=== PATIENT | male | born 1955 | race Caucasian/White ===

== ENCOUNTER → 2018-12-27 | Outpatient (CLI) | payer BC ==
--- NOTE | 2018-12-27 15:20 | XR ---
EXAMINATION TYPE: XR bone survey complete DATE OF EXAM: 12/27/2018 COMPARISON: Chest x-ray dated 04/07/2016, cervical spine x-ray dated 01/31/2016, left rib x-rays dated 01/31/2016 and nuclear medicine bone scan dated 01/25/2016 HISTORY: Monoclonal gammopathy Bony calvarium : 2 views of the bony calvarium demonstrate. Solitary lytic lesion is seen within the left frontal bone just anterior to the coronal suture. This measures 5 mm. Spine: Two views of the cervical, thoracic and lumbar spines are submitted. Moderate degenerative ch anges of the cervical spine with grade 1 anterolisthesis of C2 on C3. No suspicious lytic lesion is s een. Mild to moderate degenerative changes of the thoracic spine. No suspicious osseous lesion. The l umbar spine demonstrates grade 1 anterolisthesis of L4 on L5 and mild retrolisthesis of L3 on L2 and overall moderate degenerative change. No vertebral body height loss. No suspicious lesion. Moderate a therosclerosis of the abdominal aorta noted. PELVIS: Single view of the pelvis demonstrates moderate degenerative changes of the femoral acetabula r joints. Subtle lucencies over the sacrum appear to represent bowel gas as the periphery extends bey ond the sacroiliac joint bilaterally at the level of S3. Bowel gas overlies the left iliac bone. No s uspicious lytic lesion is seen. UPPER EXTREMITIES: Two views of the upper extremities. Advanced arthropathy of the left glenohumeral joint and mild acromioclavicular arthropathy. Moderate degenerative change of the right shoulder. LOWER EXTREMITIES: 2 views of the lower extremities. There is a small geode of the lateral femoral h ead neck junction on the right and small cam deformity. No suspicious osseous lesion. On the left the re is also a cam deformity without suspicious osseous lesion. CHEST: Biapical lucency represents underlying COPD. Linear bibasilar relate to subsegmental atelectas is. Cardiomediastinal silhouette is within normal limits. No focal consolidation, pleural effusion or pneumothorax. The previously seen cortical irregularity of the eighth left rib on the prior of 2015 is no longer visualized and could have a nondisplaced fracture that has healed well. IMPRESSION: Solitary left frontal calvarial lytic lesion. Other incidental findings as detailed above .
== END | disposition home or self-care (01) ==
LOC: RADXRMAIN 14:25
PROVIDERS: ATTEND Internal Medicine Hematology & Oncology
DX: M89.8X8 Other specified disorders of bone, other site (principal); D47.2 Monoclonal gammopathy
CPT/HCPCS: 77075

== ENCOUNTER 2019-04-17 13:20 | Inpatient (IN) | payer BC ==
--- NOTE | 2019-04-17 14:28 | ED ---
Dizziness HPI - General Chief Complaint: Dizziness Stated Complaint: SYNCOPAL EPISODE Time Seen by Provider: 04/17/19 14:09 Source: EMS Mode of arrival: EMS Limitations: no limitations - History of Present Illness Initial Comments: Patient is a 63-year-old male with history of prostate cancer myelomatous presenting to emergency Department with a chief complaint of a near syncopal episode. Patient reports about 3 hours ago he felt sudden onset of ligh theadedness and is unable to remember anything after that. The incident was witnessed by family member who states the patient was standing when he felt dizzy but did not completely pass out. The phone number reports the patient had difficulty breathing for about 30 seconds with no signs of postictal episode. Patient states he is currently undergoing chemotherapy and his most recent chemo was 1 week ago followed by several days of severe diarrhea. Patient states over the last 2 days he developed episodes of dizziness after he goes from a laying to standing position particular in the morning. Patient reports he is also developed dyspnea on exertion. 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 Patient denies shortness of breath, nausea, vomiting, blurry vision, one-sided weakness or paresthesias, gait instability or chest pain - Related Data Home Medications Medication Instructions Recorded Confirmed Acetaminophen [Tylenol] 650 mg PO Q6H PRN 04/17/19 04/17/19 Acyclovir [Zovirax] 400 mg PO BID 04/17/19 04/17/19 Aspirin 81 mg PO DAILY 04/17/19 04/17/19 Dexamethasone 20 mg PO MO 04/17/19 04/17/19 Ibuprofen [Motrin] 600 mg PO Q8H PRN 04/17/19 04/17/19 Lenalidomide [Revlimid] 25 mg PO DIRECTED 04/17/19 04/17/19 Lisinopril [Zestril] 20 mg PO DAILY 04/17/19 04/17/19 Metoprolol Tartrate [Lopressor] 50 mg PO BID 04/17/19 04/17/19 Prochlorperazine [Compazine] 10 mg PO Q6H PRN 04/17/19 04/17/19 Simvastatin [Zocor] 40 mg PO HS 04/17/19 04/17/19 Sulfamethox-Tmp 800-160Mg [Bactrim 1 tab PO MOWEFR 04/17/19 04/17/19 DS 800-160 mg] Allergies Allergy/AdvReac Type Severity Reaction Status Date / Time amoxicillin [From Amoxil] Allergy Rash/Hives Verified 04/17/19 16:08 codeine Allergy Unknown Verified 04/17/19 16:14 kacey Allergy Swelling Verified 04/17/19 16:08 monosodium glutamate [MSG] Allergy Swelling Verified 04/17/19 16:08 Review of Systems ROS Statement: Those systems with pertinent positive or pertinent negative responses have been documented in the HPI. ROS Other: All systems not noted in ROS Statement are negative. Past Medical History Past Medical History: Cancer, Hypertension Additional Past Medical History / Comment(s): Prostate cancer History of Any Multi-Drug Resistant Organisms: None Reported Past Surgical History: Hernia Repair Additional Past Surgical History / Comment(s): Lung biopsy/removal (bilateral) Past Psychological History: No Psychological Hx Reported Smoking Status: Never smoker Past Alcohol Use History: None Reported Past Drug Use History: None Reported General Exam Limitations: no limitations General appearance: alert, in no apparent distress, obese Head exam: Present: atraumatic, normocephalic, normal inspection Eye exam: Present: normal appearance, PERRL, EOMI Pupils: Present: normal accommodation ENT exam: Present: normal exam, normal oropharynx, mucous membranes moist, TM's normal bilaterally, normal external ear exam Neck exam: Present: normal inspection, full ROM Respiratory exam: Present: normal lung sounds bilaterally Cardiovascular Exam: Present: regular rate, normal rhythm, normal heart sounds GI/Abdominal exam: Present: soft. Absent: distended, tenderness, guarding, rebound Extremities exam: Present: normal inspection, full ROM Back exam: Present: normal inspection, full ROM Neurological exam: Present: alert, oriented X3 Psychiatric exam: Present: normal affect, normal mood Skin exam: Present: warm, dry, intact, normal color, rash (Macular rash on right upper and lower extremities) Course Vital Signs 04/17/19 13:22 Temperature 97.6 F Pulse Rate 60 Respiratory 18 Rate Blood Pressure 118/52 O2 Sat by Pulse 98 Oximetry EKG Findings - EKG Comments: EKG Findings:: Sided bradycardia, no ST changes. Ventricular rate 51, OH interval 164, QRS duration 80, QT/QTc 474/436 Medical Decision Making - Medical Decision Making Patient is 63-year-old male with history of prostate cancer and currently undergoing chemotherapy is presenting to emergency Department with a chief complaint of near syncopal episode. On initial evaluation patient is complaining symptomatically. EKG shows sinus bradycardia. Vital stable. Initial troponin negative. Troponin negative. Patient has no shortness of breath. Patient was going to be discharged however he states that he developed sudden onset of dizziness and was unable to completely well. Patient was also complaining of some gait instability but denies any one-sided paresthesias or weakness. Patient does report generalized weakness. Patient given fluids. Orthostatics obtained laying blood pressure 126/60 with a heart rate of 60. Sa ting blood pressure 125/61 with heart rate of 54. Standing blood pressure 109/84 with heart rate of 58. Patient is now complaining that he is symptomatically but denies any chest pain or shortness of breath. Patient will be admitted for observation. Admitting physician is . Case discussed with physician. - Lab Data Result diagrams: 04/17/19 14:32 04/17/19 14:32 Lab Results 04/17/19 04/17/19 04/17/19 Range/Units 14:32 14:32 14:32 WBC 9.9 (3.8-10.6) k/uL RBC 4.55 (4.30-5.90) m/uL Hgb 12.6 L (13.0-17.5) gm/dL Hct 38.4 L (39.0-53.0) % MCV 84.6 (80.0-100.0) fL MCH 27.8 (25.0-35.0) pg MCHC 32.9 (31.0-37.0) g/dL RDW 16.1 H (11.5-15.5) % Plt Count 104 L (150-450) k/uL Neutrophils % 63 % Lymphocytes % 11 % Monocytes % 9 % Eosinophils % 14 % Basophils % 0 % Neutrophils # 6.2 (1.3-7.7) k/uL Lymphocytes # 1.1 (1.0-4.8) k/uL Monocytes # 0.9 (0-1.0) k/uL Eosinophils # 1.4 H (0-0.7) k/uL Basophils # 0.0 (0-0.2) k/uL Anisocytosis Slight PT 10.4 (9.0-12.0) sec INR 1.0 (<1.2) APTT 21.0 L (22.0-30.0) sec Sodium 137 (137-145) mmol/L Potassium 4.3 (3.5-5.1) mmol/L Chloride 106 (98-107) mmol/L Carbon Dioxide 24 (22-30) mmol/L Anion Gap 7 mmol/L BUN 32 H (9-20) mg/dL Creatinine 1.07 (0.66-1.25) mg/dL Est GFR (CKD-EPI)AfAm 85 (>60 ml/min/1.73 sqM) Est GFR (CKD-EPI)NonAf 74 (>60 ml/min/1.73 sqM) Glucose 93 (74-99) mg/dL Calcium 7.6 L (8.4-10.2) mg/dL Total Bilirubin 0.3 (0.2-1.3) mg/dL AST 30 (17-59) U/L ALT 62 (21-72) U/L Alkaline Phosphatase 261 H (38-126) U/L Troponin I (0.000-0.034) ng/mL Total Protein 6.0 L (6.3-8.2) g/dL Albumin 3.0 L (3.5-5.0) g/dL Urine Color Urine Appearance (Clear) Urine pH (5.0-8.0) Ur Specific [place] (1.001-1.035) Urine Protein (Negative) Urine Glucose (UA) (Negative) Urine Ketones (Negative) Urine Blood (Negative) Urine Nitrite (Negative) Urine Bilirubin (Negative) Urine Urobilinogen (<2.0) mg/dL Ur Leukocyte Esterase (Negative) 04/17/19 04/17/19 04/17/19 Range/Units 14:32 14:32 16:57 WBC (3.8-10.6) k/uL RBC (4.30-5.90) m/uL Hgb (13.0-17.5) gm/dL Hct (39.0-53.0) % MCV (80.0-100.0) fL MCH (25.0-35.0) pg MCHC (31.0-37.0) g/dL RDW (11.5-15.5) % Plt Count (150-450) k/uL Neutrophils % % Lymphocytes % % Monocytes % % Eosinophils % % Basophils % % Neutrophils # (1.3-7.7) k/uL Lymphocytes # (1.0-4.8) k/uL Monocytes # (0-1.0) k/uL Eosinophils # (0-0.7) k/uL Basophils # (0-0.2) k/uL Anisocytosis PT (9.0-12.0) sec INR (<1.2) APTT (22.0-30.0) sec Sodium (137-145) mmol/L Potassium (3.5-5.1) mmol/L Chloride (98-107) mmol/L Carbon Dioxide (22-30) mmol/L Anion Gap mmol/L BUN (9-20) mg/dL Creatinine (0.66-1.25) mg/dL Est GFR (CKD-EPI)AfAm (>60 ml/min/1.73 sqM) Est GFR (CKD-EPI)NonAf (>60 ml/min/1.73 sqM) Glucose (74-99) mg/dL Calcium (8.4-10.2) mg/dL Total Bilirubin (0.2-1.3) mg/dL AST (17-59) U/L ALT (21-72) U/L Alkaline Phosphatase (38-126) U/L Troponin I <0.012 <0.012 (0.000-0.034) ng/mL Total Protein (6.3-8.2) g/dL Albumin (3.5-5.0) g/dL Urine Color Yellow Urine Appearance Clear (Clear) Urine pH 5.0 (5.0-8.0) Ur Specific [place] 1.009 (1.001-1.035) Urine Protein Negative (Negative) Urine Glucose (UA) Negative (Negative) Urine Ketones Negative (Negative) Urine Blood Negative (Negative) Urine Nitrite Negative (Negative) Urine Bilirubin Negative (Negative) Urine Urobilinogen <2.0 (<2.0) mg/dL Ur Leukocyte Esterase Negative (Negative) Disposition Clinical Impression: Syncope, near, Generalized weakness, Dizziness Disposition: ADMITTED IP TO THIS [facility] Condition: Stable Instructions (If sedation given, give patient instructions): Dizziness (ED) Additional Instructions: Patient will be admitted Referrals: Tim Perez MD [Primary Care Provider] - 1-2 days Time of Disposition: 18:21
[2019-04-17 14:47] LABS: Anisocytosis Slight; Appearance,Urine Clear (Clear); Basophils % (A) 0 %; Bilirubin,Urine Negative (Negative); Blood,Urine Negative (Negative); Color,Urine Yellow; Eosinophils # (A) 1.4 k/uL (0-0.7); Eosinophils % (A) 14 %; Glucose,Urine (UA) Negative (Negative); HCT 38.4 % (39.0-53.0); HGB 12.6 gm/dL (13.0-17.5); Ketones,Urine Negative (Negative); Leukocyte Esterase,Urine Negative (Negative); Lymphocytes # (A) 1.1 k/uL (1.0-4.8); Lymphocytes % (A) 11 %; MCH 27.8 pg (25.0-35.0); MCHC 32.9 g/dL (31.0-37.0); MCV 84.6 fL (80.0-100.0); Mean Platelet Volume 8.3; Monocytes # (A) 0.9 k/uL (0-1.0); Monocytes % (A) 9 %; Neutrophils # (A) 6.2 k/uL (1.3-7.7); Neutrophils % (A) 63 %; Nitrite,Urine Negative (Negative); Platelet Count 104 k/uL (150-450); Protein,Urine Negative (Negative); RBC 4.55 m/uL (4.30-5.90); RDW 16.1 % (11.5-15.5); Specific Gravity,Urine 1.009 (1.001-1.035); Urobilinogen,Urine <2.0 mg/dL (<2.0); WBC 9.9 k/uL (3.8-10.6)
--- NOTE | 2019-04-17 14:48 | XR ---
EXAMINATION TYPE: XR chest 2V DATE OF EXAM: 04/17/2019 COMPARISON: Chest x-ray April 07, 2016. HISTORY: Syncope and weakness. TECHNIQUE: Frontal and lateral views of the chest are obtained. FINDINGS: There is background fairly advanced emphysematous change most prominent in upper lungs rede monstrated. There is no focal air space opacity, pleural effusion, or pneumothorax seen. The cardia c silhouette size is within normal limits. Multilevel spurring in the thoracic spine is seen.. IMPRESSION: Emphysematous change without new acute pulmonary process.
[2019-04-17 14:59] LABS: Calcium 7.6 mg/dL (8.4-10.2); Potassium 4.3 mmol/L (3.5-5.1); Total Bilirubin 0.3 mg/dL (0.2-1.3)
[2019-04-17 15:02] LABS: Prothrombin Time 10.4 sec (9.0-12.0)
[2019-04-17] MEDS ORDERED: SODIUM CHLORIDE 0.9% 1,000 ML IV STA (18:17)
[2019-04-17] MEDS ORDERED: NALOXONE 0.4 MG/ML 1 ML VIAL IV PRN (18:33)
[2019-04-17] MEDS ORDERED: ALPRAZolam 0.25 MG TAB PO PRN (18:33)
[2019-04-17] MEDS: SODIUM CHLORIDE 0.9% 1,000 ML IV SCH (19:10)
--- NOTE | 2019-04-17 22:13 | CT ---
EXAMINATION TYPE: CT brain wo con DATE OF EXAM: 04/17/2019 COMPARISON: None HISTORY: Syncope, left supraorbital injury. CT DLP: 1109.4 mGycm Automated exposure control for dose reduction was used. FINDINGS: Ventricles have normal size. There is no mass effect nor midline shift. There is no sign of intracran ial hemorrhage. Calvarium is intact. There is no evidence of cerebral edema. IMPRESSION: NEGATIVE CT SCAN OF THE BRAIN.
[2019-04-18] MEDS ORDERED: HEPARIN SODIUM,PORCINE 10,000 UNIT/ML 1 ML VIAL IV ONE (08:38)
[2019-04-18] MEDS ORDERED: HEPARIN SODIUM,PORCINE 5,000 UNIT/ML 1 ML VIAL IV PRN (08:38)
[2019-04-18] MEDS ORDERED: HEPARIN SOD,PORK IN 0.45% NACL 25,000 UNIT in 0.45% NACL 1 250ML.BAG IV SCH (08:45)
--- NOTE | 2019-04-18 09:27 | CT ---
EXAMINATION TYPE: CT angio chest DATE OF EXAM: 04/18/2019 COMPARISON: HISTORY: Elevated D dimer CT DLP: 654.9 mGycm CONTRAST: CT chest with contrast and 3D reconstruction with MIP imaging is performed with IV Contrast, patient injected with 83 mL of Isovue 370. Contrast-enhanced CT of the chest was performed through the course of the pulmonary arteries with prosper g and mediastinal window settings submitted. 3D reconstruction with MIP imaging was also performed. PULMONARY ARTERIES: The pulmonary arteries and their major tributaries are patent. I do not see ame dence for sizable filling defect to suggest pulmonary embolic process. LUNGS: Severe emphysematous changes noted bilaterally. Basilar parenchymal scarring. Focal calcificat ion the right sided diaphragm. MEDIASTINUM: Thoracic aorta is of normal caliber,however, evaluation is limited given timing of the contrast bolus. If there is concern for thoracic aortic pathology consider HERIBERTO. Correlate clinicall y . The heart is not enlarged. No evidence for mediastinal mass. No mediastinal lymph nodes greater than 1cm. HILAR STRUCTURES: No evidence for mass. No hilar lymph nodes greater than 1 cm. UPPER ABDOMEN: No significant abnormality is seen. IMPRESSION: 1. No evidence for Pulmonary embolism at this time.
--- NOTE | 2019-04-18 09:51 | CONS ---
CONSULTATION CHIEF COMPLAINT: Syncope. This is a 63-year-old gentleman with history of hypertension, metastatic prostate cancer, history of multiple myeloma who is currently receiving chemotherapy, who had undergone abdominal hernia surgery within the last 6 months, came to hospital having had an episode of syncope at home. Patient got up from his is sitting position, was walking around, became very short of breath and subsequently had transient loss of consciousness. This was witnessed by his and daughter. The patient came to hospital, got admitted and EKG showed sinus bradycardia without significant ST-T wave changes. Hemoglobin was normal at 12.6, platelet count was 104. Potassium was 4.3, creatinine was 1. Last night he was in the he was initially admitted to the OPS unit where he was on the commode and another episode of syncope. I was called by the nurse at that time and was told that his heart rate was around 26 beats per minute. [facility] and asked him to stop the metoprolol that the patient was on. Patient also just recently completed chemo and is somewhat fatigued and tired as a result. Around 11 o'clock last night, patient had a D-dimer, not quite sure who ordered it, but it came back elevated. Not sure who was informed about the elevated D-dimer, but nothing further was done about it. Patient tells me that he has been becoming progressively short of breath for the last several weeks, especially over the last 2-3 weeks. He has moderate to severe shortness of breath with exertion. His physical activity has diminished and he has not been doing particularly well over the last several months, probably related to chemotherapy and a whole host of things going on with him. At the time of my evaluation this morning, patient appears hemodynamically stable at rest. He fell yesterday and has ecchymosis in the periorbital area of the left eye, but he does not seem to be in respiratory distress. The patient is becoming short of breath with getting up and with any little activity. I am concerned with his elevated D-dimer and history of cancer and chemotherapy and this progressively worsening shortness of breath over the last several weeks without any clear explanation. I am worried that the patient may have acute pulmonary embolism, especially in the context of elevated D-dimer. I will start him on IV heparin stat. Obtain a CT chest stat and obtain an echocardiogram stat. If we do not find pulmonary embolism, we are going to stop the heparin though the patient and I understand that there is a risk of bleeding given the recent trauma. The patient is willing to take the risk and he has been explained of this. PAST MEDICAL HISTORY: Significant for hypertension, multiple myeloma, metastatic cancer of the prostate. MEDICATIONS: At home include Bactrim, Zocor 40 q. daily, Compazine, Lopressor, Zestril, Motrin, aspirins, and Tylenol. Patient is allergic to AMOXICILLIN, CODEINE, JEFF, and MONOSODIUM GLUTAMATE. FAMILY HISTORY: Negative for premature coronary artery disease. SOCIAL HISTORY: Negative for current smoking, EtOH abuse or drug abuse. REVIEW OF SYSTEMS: HEENT: Significant for fall and left orbital ecchymosis. CARDIAC: Negative. RESPIRATORY: As described above. GI: Negative. GENITOURINARY: Negative. ALLERGY/IMMUNOLOGY: Negative. SKIN: Negative. MUSCULOSKELETAL: Significant for multiple myeloma. PSYCHOSOCIAL: Negative. ENDOCRINE: Negative. HEMATOLOGICAL: Negative. Rest of the system review is not relevant. PHYSICAL EXAMINATION: On exam, patient is comfortable at rest. Afebrile. Heart rate is 69 beats per minute. Blood pressure is 130/60, respiratory rate is 18, O2 saturation is 99% on 2 L. There is no jugular venous distention. Carotid upstroke is normal. There is no bruit. Chest exam reveals diminished air entry at the bases. Heart exam reveals first and second heart sounds. No gallop. No murmur. Abdomen is soft. Exam of extremities did not reveal any edema. Peripheral pulses are felt. LABS: Show a hemoglobin of 12.6, platelet count is 104. Potassium is 4.3, creatinine is 1. Two sets of troponins are negative. D-dimer is elevated. ASSESSMENT: 1. Syncope, rule out pulmonary embolism. 2. Hypertension. 3. Prostate cancer. 4. Multiple myeloma. PLAN: If the CT chest is negative, then I will stop the heparin and pursue other workup. It is possible patient is having vasovagal syncope and shortness of breath is related to other etiologies. MMODL / IJN: [id number] /
[2019-04-18] MEDS: ACETAMINOPHEN TAB 325 MG TAB PO PRN ×3 (10:34→21:57)
--- NOTE | 2019-04-18 10:34 | P.GSCN ---
History of Present Illness Consult date: 04/18/19 Reason for Consult: Fall History of present illness: 63-year-old male admitted to the hospital with shortness of breath, fatigue, and some blurry vision. While here in the hospital he apparently passed out while using the restroom fell forward and struck his left periorbital region and his left chest. Complaining of left chest pain and some mild pain above the left eye. No double vision. No headache. Denies shortness of breath currently. Had CT brain which was reviewed with the radiologist. No acute abnormalities seen. No evidence of fracture of the facial bones seen on that study. CT chest showed no evidence of PE however a fracture of the left fifth rib noted. Denies abdominal pain. Review of Systems The patient denies any acute changes in hearing, no dysphagia or odynophagia, no dysuria or hematuria, no headache, no runny nose, no rectal bleeding or melena, no unexplained weight loss Past Medical History Past Medical History: Cancer, Hyperlipidemia, Hypertension Additional Past Medical History / Comment(s): Prostate cancer History of Any Multi-Drug Resistant Organisms: None Reported Past Surgical History: Hernia Repair, Tonsillectomy Additional Past Surgical History / Comment(s): Lung biopsy/removal (bilateral) Past Anesthesia/Blood Transfusion Reactions: No Reported Reaction Past Psychological History: No Psychological Hx Reported Smoking Status: Former smoker Past Alcohol Use History: None Reported Past Drug Use History: None Reported Medications and Allergies Home Medications Medication Instructions Recorded Confirmed Type Acetaminophen [Tylenol] 650 mg PO Q6H PRN 04/17/19 04/17/19 History Acyclovir [Zovirax] 400 mg PO BID 04/17/19 04/17/19 History Aspirin 81 mg PO DAILY 04/17/19 04/17/19 History Dexamethasone 20 mg PO MO 04/17/19 04/17/19 History Ibuprofen [Motrin] 600 mg PO Q8H PRN 04/17/19 04/17/19 History Lenalidomide [Revlimid] 25 mg PO DIRECTED 04/17/19 04/17/19 History Lisinopril [Zestril] 20 mg PO DAILY 04/17/19 04/17/19 History Metoprolol Tartrate [Lopressor] 50 mg PO BID 04/17/19 04/17/19 History Prochlorperazine [Compazine] 10 mg PO Q6H PRN 04/17/19 04/17/19 History Simvastatin [Zocor] 40 mg PO HS 04/17/19 04/17/19 History Sulfamethox-Tmp 800-160Mg [Bactrim 1 tab PO MOWEFR 04/17/19 04/17/19 History DS 800-160 mg] Allergies Allergy/AdvReac Type Severity Reaction Status Date / Time amoxicillin [From Amoxil] Allergy Rash/Hives Verified 04/17/19 19:55 codeine Allergy Unknown Verified 04/17/19 19:55 kacey Allergy Swelling Verified 04/17/19 19:55 monosodium glutamate [MSG] Allergy Swelling Verified 04/17/19 19:55 Surgical - Exam Vital Signs Temp Pulse Resp BP Pulse Ox 97.6 F 60 18 118/52 98 04/17/19 13:22 04/17/19 13:22 04/17/19 13:22 04/17/19 13:22 04/17/19 13:22 Physical exam: General: Well-developed, well-nourished HEENT: Ecchymosis with swelling above and around the left orbital region, mild tenderness, pupils equal and reactive, extraocular movements normal, sclerae nonicteric Chest: Left-sided chest tenderness without crepitus Abdomen: Nontender, nondistended Extremities: No edema Neuro: Alert and oriented Results - Labs 04/17/19 14:32 04/17/19 14:32 Abnormal Lab Results - Last 24 Hours (Table) 04/17/19 04/17/19 04/17/19 Range/Units 14:32 14:32 14:32 Hgb 12.6 L (13.0-17.5) gm/dL Hct 38.4 L (39.0-53.0) % RDW 16.1 H (11.5-15.5) % Plt Count 104 L (150-450) k/uL Eosinophils # 1.4 H (0-0.7) k/uL APTT 21.0 L (22.0-30.0) sec D-Dimer (<0.60) mg/L FEU BUN 32 H (9-20) mg/dL Calcium 7.6 L (8.4-10.2) mg/dL Alkaline Phosphatase 261 H (38-126) U/L Total Protein 6.0 L (6.3-8.2) g/dL Albumin 3.0 L (3.5-5.0) g/dL 04/17/19 Range/Units 23:08 Hgb (13.0-17.5) gm/dL Hct (39.0-53.0) % RDW (11.5-15.5) % Plt Count (150-450) k/uL Eosinophils # (0-0.7) k/uL APTT (22.0-30.0) sec D-Dimer 6.95 H (<0.60) mg/L FEU BUN (9-20) mg/dL Calcium (8.4-10.2) mg/dL Alkaline Phosphatase (38-126) U/L Total Protein (6.3-8.2) g/dL Albumin (3.5-5.0) g/dL Diabetes panel 04/17/19 Range/Units 14:32 Sodium 137 (137-145) mmol/L Potassium 4.3 (3.5-5.1) mmol/L Chloride 106 (98-107) mmol/L Carbon Dioxide 24 (22-30) mmol/L BUN 32 H (9-20) mg/dL Creatinine 1.07 (0.66-1.25) mg/dL Glucose 93 (74-99) mg/dL Calcium 7.6 L (8.4-10.2) mg/dL AST 30 (17-59) U/L ALT 62 (21-72) U/L Alkaline Phosphatase 261 H (38-126) U/L Total Protein 6.0 L (6.3-8.2) g/dL Albumin 3.0 L (3.5-5.0) g/dL Calcium panel 04/17/19 Range/Units 14:32 Calcium 7.6 L (8.4-10.2) mg/dL Albumin 3.0 L (3.5-5.0) g/dL Pituitary panel 04/17/19 Range/Units 14:32 Sodium 137 (137-145) mmol/L Potassium 4.3 (3.5-5.1) mmol/L Chloride 106 (98-107) mmol/L Carbon Dioxide 24 (22-30) mmol/L BUN 32 H (9-20) mg/dL Creatinine 1.07 (0.66-1.25) mg/dL Glucose 93 (74-99) mg/dL Calcium 7.6 L (8.4-10.2) mg/dL Adrenal panel 04/17/19 Range/Units 14:32 Sodium 137 (137-145) mmol/L Potassium 4.3 (3.5-5.1) mmol/L Chloride 106 (98-107) mmol/L Carbon Dioxide 24 (22-30) mmol/L BUN 32 H (9-20) mg/dL Creatinine 1.07 (0.66-1.25) mg/dL Glucose 93 (74-99) mg/dL Calcium 7.6 L (8.4-10.2) mg/dL Total Bilirubin 0.3 (0.2-1.3) mg/dL AST 30 (17-59) U/L ALT 62 (21-72) U/L Alkaline Phosphatase 261 H (38-126) U/L Total Protein 6.0 L (6.3-8.2) g/dL Albumin 3.0 L (3.5-5.0) g/dL Assessment and Plan (1) Left rib fracture Narrative/Plan: 63-year-old male with fall after syncopal episode. No evidence of facial fracture or significant laceration. Patient does have a rib fracture on the left hand side which explains his tenderness. Begin incentive spirometry. We'll reevaluate tomorrow. Current Visit: Yes Status: Acute Code(s): S22.32XA - FRACTURE OF ONE RIB, L EFT SIDE, INIT FOR CLOS FX SNOMED Code(s): 81462153
[2019-04-18] MEDS: SODIUM CHLORIDE 0.9% 1,000 ML IV SCH ×2 (10:44→20:07)
[2019-04-18] MEDS: SULFAMETHOX-TMP 800-160MG 1 EACH TAB PO SCH (12:40)
[2019-04-18] MEDS: ASPIRIN 81 MG PO SCH (12:40)
[2019-04-18 12:50] VITALS: BMI 32.2
--- NOTE | 2019-04-18 15:03 | ECHOF ---
Referral Reason:r/o pe MEASUREMENTS -------- HEIGHT: 170.2 cm WEIGHT: 95.3 kg BP: RVIDd: 3.2 cm (< 3.3) IVSd: 1.6 cm (0.6 - 1.1) LVIDd: 3.5 cm (3.9 - 5.3) LVPWd: 1.3 cm (0.6 - 1.1) IVSs: 1.8 cm LVIDs: 2.4 cm LVPWs: 1.6 cm LA Diam: 3.0 cm (2.7 - 3.8) Ao Diam: 3.5 cm (2.0 - 3.7) AV Cusp: 2.3 cm (1.5 - 2.6) MV EXCURSION: 16.009 mm (> 18.000) MV EF SLOPE: 57 mm/s (70 - 150) EPSS: 0.6 cm MV E Dmitry: 0.83 m/s MV DecT: 252 ms MV A Dmitry: 0.98 m/s MV E/A Ratio: 0.84 FINDINGS -------- Sinus rhythm. This was a technically adequate study. No apicals views The left ventricular size is normal. There is moderate concentric left ventricular hypertrophy. O verall left ventricular systolic function is normal with, an EF between 60 - 65 %. The right ventricle is normal in size. The left atrial size is normal. The right atrium is normal in size. Interatrial and interventricular septum intact. The aortic valve was not well visualized. The mitral valve is normal. The tricuspid valve appears structurally normal. There is no pulmonic regurgitation present. The aortic root size is normal. Normal inferior vena cava with normal inspiratory collapse consistent with estimated right atrial pre ssure of 5 mmHg. There is no pericardial effusion. CONCLUSIONS -------- 1. Sinus rhythm. 2. This was a technically adequate study. 3. No apicals views 4. The left ventricular size is normal. 5. There is moderate concentric left ventricular hypertrophy. 6. Overall left ventricular systolic function is normal with, an EF between 60 - 65 %. 7. The right ventricle is normal in size. 8. The left atrial size is normal. 9. The right atrium is normal in size. 10. Interatrial and interventricular septum intact. 11. The aortic valve was not well visualized. 12. The mitral valve is normal. 13. The tricuspid valve appears structurally normal. 14. There is no pulmonic regurgitation present. 15. The aortic root size is normal. 16. Normal inferior vena cava with normal inspiratory collapse consistent with estimated right atrial pressure of 5 mmHg. 17. There is no pericardial effusion. VISUAL LEAD: Lora Agarwal RDCS
[2019-04-18] MEDS: ACYCLOVIR 200 MG CAP PO SCH (20:07)
[2019-04-18] MEDS: ATORVASTATIN 20 MG TAB PO SCH (20:07)
[2019-04-18] MEDS ORDERED: MELATONIN 1 MG TAB PO SCH (21:00)
[2019-04-18] MEDS: BUDESONIDE 1 MG/2 ML NEBU INHALATION SCH (21:27)
[2019-04-18] MEDS: FORMOTEROL FUMARATE 20 MCG/2 ML NEBU INHALATION SCH (21:28)
[2019-04-18] MEDS: IPRATROPIUM-ALBUTEROL 3 ML NEB INHALATION SCH (21:28)
--- NOTE | 2019-04-18 21:35 | P.HPIM ---
History of Present Illness H&P Date: 04/18/19 Chief Complaint: Past out History of presenting complaint: This is a pleasant [address] Perez. Most of the history is obtained with the patient and the at the bedside. Chronic stable medical conditions include hypertension, hyperlipidemia, prostate cancer. Patient had prostate surgery in the past and subsequently had radiation treatment. Patient now been getting some chemotherapy. Patient had family, we history for Thanksgiving. Patient was sitting down and when he tried to get up and go he felt probably week and then patient passed out. EMS was called patient was brought into the hospital. Admitted to the observation unit. Patient sitting down when he again passed out. Bumped his head against the wall had a slight laceration of the hematoma. He was noted on the telemetry at that time around" yesterday evening the patient had a 3 second pause and heart rate was down to the 20s. Patient had been on Lopressor. That has been discontinued. Patient also states that overall. Of more than a year patient has been progressively becoming more and more short of breath. This probably happened with exertion patient is short winded. Over time this is becoming more progressive. Patient's daughter states that while he is talking before he starts wheezing. It may be noted that patient is an ex-smoker. There is no edema. No orthopnea. Patient normally uses 1 pillow at night. No fever no chills. Review of systems: GEN.: Tired EYES: Left. 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 No alcohol. Smoked for a few years stopped about 36 years ago. Family history: Reviewed, noncontributory to presentation Physical examination: VITAL SIGNS: 97.6, 60, 18, 11 8/52, 98% on 2 L GENERAL: BMI 32.3, sitting up but awake a bit tired. EYES: Pupils equal. Conjunctiva normal. HEENT: Hematoma around the left eye, with dressing superiorly. NECK: JVD not raised; masses not palpable. HEART: First and second heart sounds are normal; no edema. LUNGS:[ Respiratory rate increased, diminished breath sounds. ABDOMEN: Soft, nontender, liver spleen not palpable, no masses palpable. PSYCH: Alert and oriented x3; mood and affect normal. NEUROLOGICAL: Cranial nerves grossly intact; no facial asymmetry, power and sensation grossly intact. LYMPHATICS: No lymph nodes palpable in the axilla and neck INVESTIGATIONS, reviewed in the clinical context: White count 9.9 hemoglobin 12.6 platelets 104 progression 4.3 bun 32 crit 1.07 Troponin I [address] chest-negative for PE. Severe emphysematous changes. Basilar parenchymal scarring. Computed tomography scan brain-negative EKG tracing personally reviewed by me-normal sinus rhythm. Telemetry strip from yesterday evening showed 3 second pause heart rate down to the 20s Chest x-ray film personally reviewed by me-shows prominent interstitial Assessment: -This is a patient presented with 2 episodes of syncope. One of the episodes was associated with 3 second pause and heart rate in the 20s. Patient had been on Lopressor 50 mg twice a day which has been discontinued. Patient heart rate since then has come up with no further episodes. -Advanced emphysema and an ex-smoker -Possible pulmonary fibrosis. Patient states she has been progressively getting short of breath with exertion for over a year. Does no other signs of CHF that is no orthopnea PND or edema. -Obesity BMI 32.3 -Left periorbital hematoma with a small laceration secondary to fall -Hyperlipidemia -Essential hypertension -Prostate cancer status post surgery, radiation treatment and chemotherapy. -Bicytopenia secondary to chemotherapy Plan: Care was discussed with the patient his and his son and daughter the bed side. We'll start the patient on nebulized bronchodilator with DuoNeb, and his steroids and IV steroids. We'll order a high resolution computed tomography scan to check for pulmonary fibrosis. General surgery was consulted for the hematoma in the left forehead. Cardiology was consulted. Heart rate seems to call nicely after stopping the beta jovani. Will resume patient's home dose of NORBERT inhibitor. Past Medical History Past Medical History: Cancer, Hyperlipidemia, Hypertension Additional Past Medical History / Comment(s): Prostate cancer History of Any Multi-Drug Resistant Organisms: None Reported Past Surgical History: Hernia Repair, Tonsillectomy Additional Past Surgical History / Comment(s): Lung biopsy/removal (bilateral) Past Anesthesia/Blood Transfusion Reactions: No Reported Reaction Past Psychological History: No Psychological Hx Reported Smoking Status: Former smoker Past Alcohol Use History: None Reported Past Drug Use History: None Reported Medications and Allergies Home Medications Medication Instructions Recorded Confirmed Type Acetaminophen [Tylenol] 650 mg PO Q6H PRN 04/17/19 04/17/19 History Acyclovir [Zovirax] 400 mg PO BID 04/17/19 04/17/19 History Aspirin 81 mg PO DAILY 04/17/19 04/17/19 History Dexamethasone 20 mg PO MO 04/17/19 04/17/19 History Ibuprofen [Motrin] 600 mg PO Q8H PRN 04/17/19 04/17/19 History Lenalidomide [Revlimid] 25 mg PO DIRECTED 04/17/19 04/17/19 History Lisinopril [Zestril] 20 mg PO DAILY 04/17/19 04/17/19 History Metoprolol Tartrate [Lopressor] 50 mg PO BID 04/17/19 04/17/19 History Prochlorperazine [Compazine] 10 mg PO Q6H PRN 04/17/19 04/17/19 History Simvastatin [Zocor] 40 mg PO HS 04/17/19 04/17/19 History Sulfamethox-Tmp 800-160Mg [Bactrim 1 tab PO MOWEFR 04/17/19 04/17/19 History DS 800-160 mg] Allergies Allergy/AdvReac Type Severity Reaction Status Date / Time amoxicillin [From Amoxil] Allergy Rash/Hives Verified 04/17/19 19:55 codeine Allergy Unknown Verified 04/17/19 19:55 kacey Allergy Swelling Verified 04/17/19 19:55 monosodium glutamate [MSG] Allergy Swelling Verified 04/17/19 19:55 Physical Exam Vitals: Vital Signs Temp Pulse Pulse Pulse Pulse Pulse Resp 04/18/19 08:00 97.8 F 69 81 70 16 04/18/19 03:28 98.1 F 71 18 04/18/19 03:27 66 20 04/17/19 23:18 97.8 F 66 20 04/17/19 23:14 60 18 04/17/19 21:05 20 04/17/19 19:25 97.4 F L 60 18 04/17/19 19:13 97.8 F 62 18 04/17/19 13:22 97.6 F 60 18 BP BP BP BP BP Pulse Ox 04/18/19 08:00 129/59 122/60 116/55 99 04/18/19 03:28 127/60 95 04/18/19 03:27 04/17/19 23:18 136/95 97 04/17/19 23:14 04/17/19 21:05 148/68 93 L 04/17/19 19:25 134/69 98 04/17/19 19:13 120/58 95 04/17/19 13:22 118/52 98 Intake and Output 04/17/19 04/18/19 04/18/19 22:59 06:59 14:59 Intake Total 600 Output Total 900 700 Balance -300 -700 Intake: Intake, IV Titration 600 Amount Sodium Chloride 0.9% 1, 600 000 ml @ 75 mls/hr IV . [id number] [facility] Rx#:[id number] Output: Urine 900 700 Other: Voiding Method Toilet Urinal # Voids 1 1 Results CBC & Chem 7: 04/17/19 14:32 04/17/19 14:32 Labs: Abnormal Lab Results - Last 24 Hours (Table) 04/17/19 04/17/19 04/17/19 Range/Units 14:32 14:32 14:32 Hgb 12.6 L (13.0-17.5) gm/dL Hct 38.4 L (39.0-53.0) % RDW 16.1 H (11.5-15.5) % Plt Count 104 L (150-450) k/uL Eosinophils # 1.4 H (0-0.7) k/uL APTT 21.0 L (22.0-30.0) sec D-Dimer (<0.60) mg/L FEU BUN 32 H (9-20) mg/dL Calcium 7.6 L (8.4-10.2) mg/dL Alkaline Phosphatase 261 H (38-126) U/L Total Protein 6.0 L (6.3-8.2) g/dL Albumin 3.0 L (3.5-5.0) g/dL 04/17/19 Range/Units 23:08 Hgb (13.0-17.5) gm/dL Hct (39.0-53.0) % RDW (11.5-15.5) % Plt Count (150-450) k/uL Eosinophils # (0-0.7) k/uL APTT (22.0-30.0) sec D-Dimer 6.95 H (<0.60) mg/L FEU BUN (9-20) mg/dL Calcium (8.4-10.2) mg/dL Alkaline Phosphatase (38-126) U/L Total Protein (6.3-8.2) g/dL Albumin (3.5-5.0) g/dL Thrombosis Risk Factor Assmnt - Choose All That Apply Any of the Below Risk Factors Present?: Yes Each Factor Represents 1 point: Obesity (BMI >25) Other Risk Factors: No Other congenital or acquired thrombophilia - If yes, enter type in comment: No Thrombosis Risk Factor Assessment Total Risk Factor Score: 1 Thrombosis Risk Factor Assessment Level: Low Risk
[2019-04-18] MEDS: MELATONIN 3 MG TABLET PO SCH (21:57)
[2019-04-19] MEDS: IPRATROPIUM-ALBUTEROL 3 ML NEB INHALATION SCH ×6 (01:01→20:20)
[2019-04-19] MEDS: ACETAMINOPHEN TAB 325 MG TAB PO PRN ×3 (06:40→18:07)
[2019-04-19 06:46] LABS: Anisocytosis Slight; Basophils % (A) 0 %; Eosinophils # (A) 0.9 k/uL (0-0.7); Eosinophils % (A) 18 %; HCT 31.8 % (39.0-53.0); HGB 10.4 gm/dL (13.0-17.5); Lymphocytes # (A) 0.7 k/uL (1.0-4.8); Lymphocytes % (A) 15 %; MCH 27.9 pg (25.0-35.0); MCHC 32.7 g/dL (31.0-37.0); MCV 85.2 fL (80.0-100.0); Mean Platelet Volume 7.4; Monocytes # (A) 0.3 k/uL (0-1.0); Monocytes % (A) 6 %; Neutrophils # (A) 2.9 k/uL (1.3-7.7); Neutrophils % (A) 59 %; RBC 3.74 m/uL (4.30-5.90); WBC 4.8 k/uL (3.8-10.6)
--- NOTE | 2019-04-19 07:37 | CT ---
EXAMINATION TYPE: CT chest wo con DATE OF EXAM: 04/19/2019 COMPARISON: CTA chest from yesterday. HISTORY: Pulmonary fibrosis CT DLP: 1130.3 mGycm. Automated Exposure Control for Dose Reduction was Utilized. TECHNIQUE: CT scan of the thorax is performed without IV contrast. High-resolution protocol with 1 m m sequences obtained in 10 mm intervals in supine and prone technique. FINDINGS: LUNGS: There is redemonstration of advanced emphysematous change most prominent in the upper lungs wi th mild to moderate linear fibrotic changes in the mid to lower lungs. No pleural effusion or pneumot horax is identified. No bronchiectasis is seen. No areas of suspicious focal groundglass opacity or c onsolidation. MEDIASTINUM: Lack of IV contrast is noted to limit evaluation for mediastinal and especially hilar ad enopathy. There are no definitive greater than 1 cm hilar or mediastinal lymph nodes. No cardiomega ly or pericardial effusion is seen. Coronary artery calcification is redemonstrated. OTHER: Scattered sclerotic bony osseous metastatic lesions are again seen. IMPRESSION: Advanced emphysematous change bilateral upper lungs with mild to moderate mid to lower jurgen ng linear fibrotic changes. No acute pulmonary process. Osseous sclerotic metastatic disease is noted .
[2019-04-19 08:00] LABS: Platelet Count 89 k/uL (150-450)
[2019-04-19] MEDS: ACYCLOVIR 200 MG CAP PO SCH ×2 (08:14→20:35)
[2019-04-19] MEDS: ASPIRIN 81 MG PO SCH (08:14)
[2019-04-19] MEDS: FORMOTEROL FUMARATE 20 MCG/2 ML NEBU INHALATION SCH ×2 (08:23→20:32)
[2019-04-19] MEDS: BUDESONIDE 1 MG/2 ML NEBU INHALATION SCH ×2 (08:23→20:20)
[2019-04-19] MEDS: SODIUM CHLORIDE 0.9% 1,000 ML IV SCH (10:48)
--- NOTE | 2019-04-19 11:05 | PN ---
PROGRESS NOTE FOLLOW-UP NOTE: This is a 63-year-old gentleman with history of multiple myeloma, metastatic prostate cancer, who was receiving chemotherapy for multiple myeloma and has progressively worsening shortness of breath. He came into hospital having had an episode of syncope at home and had another syncope here in the hospital. His cardiac workup so far has been negative. He remains in sinus rhythm. Echocardiogram shows normal LV systolic function. There is no evidence of aortic stenosis. CT chest was negative for pulmonary embolism. He is still at bedrest. Physical activity is limited. On exam, comfortable at rest. Vital signs are stable. Chest exam reveals good air entry bilaterally. Heart exam reveals first and second heart sounds. No gallop. Examination of extremities did not reveal any edema. Peripheral pulses are felt. The patient is currently on Xanax, aspirin, Lipitor and Pulmicort. ASSESSMENT: 1. Syncope, probably related to bradycardia in a patient who was on AV catracho blockers. 2. Multiple myeloma. 3. Metastatic prostate cancer. PLAN: Will increase his activity. Continue to watch him on telemetry. MMDEBL / IJN: [id number] /
--- NOTE | 2019-04-19 11:43 | P.PN ---
Subjective Progress Note Date: 04/19/19 Principal diagnosis: Fall Patient feels better today. Still having left-sided chest pain. His vision is back to normal. Hemoglobin 10.2. CT chest shows no pneumothorax or hemothorax. Rib fracture again seen. Objective - Vital Signs Vital signs: Vital Signs Temp 98.7 F 04/19/19 08:15 Pulse 76 04/19/19 08:44 Resp 18 04/19/19 08:15 BP 138/67 04/19/19 08:15 Pulse Ox 98 04/19/19 08:15 Intake & Output 04/18/19 04/19/19 04/19/19 18:59 06:59 18:59 Intake Total 1072 240 Output Total 900 Balance 172 240 Weight 93.44 kg 96.7 kg Intake: IV 600 Sodium Chloride 0.9% 1, 600 000 ml @ 75 mls/hr IV . [id number] [facility] Rx#:[id number] Oral 472 240 Output: Urine 900 Other: Voiding Method Urinal Urinal - Exam Chest: Mild left-sided tenderness Periorbital ecchymosis improving - Labs CBC & Chem 7: 04/19/19 06:08 04/17/19 14:32 Labs: Abnormal Lab Results - Last 24 Hours (Table) 04/19/19 Range/Units 06:08 RBC 3.74 L (4.30-5.90) m/uL Hgb 10.4 L (13.0-17.5) gm/dL Hct 31.8 L (39.0-53.0) % RDW 16.0 H (11.5-15.5) % Plt Count 89 L (150-450) k/uL Lymphocytes # 0.7 L (1.0-4.8) k/uL Eosinophils # 0.9 H (0-0.7) k/uL Assessment and Plan (1) Left rib fracture Narrative/Plan: Continue incentive spirometry. Continue workup of the patient's syncopal episode. We'll sign off. Call if needed. Current Visit: Yes Status: Acute Code(s): S22.32XA - FRACTURE OF ONE RIB, LEFT SIDE, INIT FOR CLOS FX SNOMED Code(s): 63948840
[2019-04-19 12:19] LABS: Glucose,Whole Blood 121 mg/dL (75-99)
[2019-04-19 16:53] LABS: Glucose,Whole Blood 121 mg/dL (75-99)
[2019-04-19 20:24] LABS: Glucose,Whole Blood 119 mg/dL (75-99)
[2019-04-19] MEDS: MELATONIN 3 MG TABLET PO SCH (20:35)
[2019-04-19] MEDS: ATORVASTATIN 20 MG TAB PO SCH (20:35)
--- NOTE | 2019-04-19 20:58 | P.PN ---
Progress Note - Text Progress Note Date: 04/19/19 Chief Complaint: Past out History of presenting complaint: This is a pleasant [address] Perez. Most of the history is obtained with the patient and the at the bedside. Chronic stable medical conditions include hypertension, hyperlipidemia, prostate cancer. Patient had prostate surgery in the past and subsequently had radiation treatment. Patient now been getting some chemotherapy. Patient had family, we history for Thanksgiving. Patient was sitting down and when he tried to get up and go he felt probably week and then patient passed out. EMS was called patient was brought into the hospital. Admitted to the observation unit. Patient sitting down when he again passed out. Bumped his head against the wall had a slight laceration of the hematoma. He was noted on the telemetry at that time around" yesterday evening the patient had a 3 second pause and heart rate was down to the 20s. Patient had been on Lopressor. That has been discontinued. Patient also states that overall. Of more than a year patient has been progressively becoming more and more short of breath. This probably happened with exertion patient is short winded. Over time this is becoming more progressive. Patient's daughter states that while he is talking before he starts wheezing. It may be noted that patient is an ex-smoker. There is no edema. No orthopnea. Patient normally uses 1 pillow at night. No fever no chills. Admitted with-severe bradycardia from beta blockers now discontinued. Syncope leading to periorbital hematoma secondary to fall. New diagnosis of advanced emphysema. Today-sitting up in bed. Feeling a bit better. Heart rate has come up. at the bedside. She short winded on getting to the bathroom. Review of systems: Was done for constitutional, cardiovascular, GI, pulmonary. relevant finding as above Active Medications Acetaminophen (Tylenol Tab) 650 mg PO Q6HR PRN PRN Reason: Fever and/ or Pain Last Admin: 04/19/19 18:07 Dose: 650 mg Documented by: Acyclovir (Zovirax) 400 mg PO BID [facility] Last Admin: 04/19/19 20:35 Dose: 400 mg Documented by: Albuterol/Ipratropium (Duoneb 0.5 Mg-3 Mg/3 Ml Soln) 3 ml INHALATION RT-QID [facility] Last Admin: 04/19/19 20:20 Dose: 3 ml Documented by: Alprazolam (Xanax) 0.25 mg PO Q6HR PRN PRN Reason: Anxiety Last Admin: 04/18/19 01:56 Dose: 0.25 mg Documented by: Aspirin (Aspirin) 81 mg PO DAILY [facility] Last Admin: 04/19/19 08:14 Dose: 81 mg Documented by: Atorvastatin Calcium (Lipitor) 20 mg PO HS [facility] Last Admin: 04/19/19 20:35 Dose: 20 mg Documented by: Budesonide (Pulmicort) 1 mg INHALATION RT-BID [facility] Last Admin: 04/19/19 20:20 Dose: 1 mg Documented by: Formoterol Fumarate (Perforomist) 20 mcg INHALATION RT-BID [facility] Last Admin: 04/19/19 20:32 Dose: 20 mcg Documented by: Sodium Chloride (Saline 0.9%) 1,000 mls @ 75 mls/hr IV .[id number] [facility] Last Admin: 04/19/19 10:48 Dose: Not Given Documented by: Melatonin (Melatonin) 3 mg PO [facility] Last Admin: 04/19/19 20:35 Dose: 3 mg Documented by: Naloxone HCl (Narcan) 0.2 mg IV Q2M PRN PRN Reason: Opioid Reversal Trimethoprim/Sulfamethoxazole (Bactrim Ds) 1 each PO MOWEFR [facility] Last Admin: 04/18/19 12:40 Dose: 1 each Documented by: Physical examination: VITAL SIGNS: 97.9, 85, 18, 11 5/69, 96% on 2 L GENERAL: Sitting on bed, awake EYES: Pupils equal. Conjunctiva normal. HEENT: Hematoma around the left eye, some improvement NECK: JVD not raised; masses not palpable. HEART: First and second heart sounds are normal; no edema. LUNGS:[ Respiratory rate increased, diminished breath sounds. ABDOMEN: Soft, nontender, liver spleen not palpable, no masses palpable. PSYCH: Alert and oriented x3; mood and affect normal. NEUROLOGICAL: Cranial nerves grossly intact; no facial asymmetry, power and sensation grossly intact. LYMPHATICS: No lymph nodes palpable in the axilla and neck INVESTIGATIONS, reviewed in the clinical context: High resolution CT chest-some lower lungs scarring White count 4.8 hemoglobin 10.4 platelets 89 Previous testing White count 9.9 hemoglobin 12.6 platelets 104 progression 4.3 bun 32 crit 1.07 Troponin I [address] chest-negative for PE. Severe emphysematous changes. Basilar parenchymal scarring. Computed tomography scan brain-negative EKG tracing personally reviewed by me-normal sinus rhythm. Telemetry strip from yesterday evening showed 3 second pause heart rate down to the 20s Chest x-ray film personally reviewed by me-shows prominent interstitial Assessment: -Severe symptomatic bradycardia and 3 second pause from beta jovani. Now discontinued. -Advanced emphysema and an ex-smoke -Probable pulmonary fibrosis. Patient states she has been progressively getting short of breath with exertion for over a year. Does no other signs of CHF that is no orthopnea PND or edema. -Obesity BMI 32.3 -Left periorbital hematoma with a small laceration secondary to fall -Hyperlipidemia -Essential hypertension -Prostate cancer status post surgery, radiation treatment and chemotherapy. -Bicytopenia secondary to chemotherapy Plan: Continue current medication treatment plan. We'll get a pulmonary opinion. Patient has followed with Dr. Tinajero in the past. Probably another 24-48 hours in the hospital.
[2019-04-20] MEDS: ACETAMINOPHEN TAB 325 MG TAB PO PRN ×4 (00:30→16:14)
[2019-04-20] MEDS: SODIUM CHLORIDE 0.9% 1,000 ML IV SCH ×2 (01:49→12:16)
[2019-04-20 06:05] LABS: Anisocytosis Slight; Basophils % (A) 1 %; Eosinophils # (A) 0.7 k/uL (0-0.7); Eosinophils % (A) 15 %; HCT 30.4 % (39.0-53.0); HGB 9.9 gm/dL (13.0-17.5); Lymphocytes # (A) 0.6 k/uL (1.0-4.8); Lymphocytes % (A) 14 %; MCH 27.9 pg (25.0-35.0); MCHC 32.6 g/dL (31.0-37.0); MCV 85.7 fL (80.0-100.0); Mean Platelet Volume 7.9; Monocytes # (A) 0.4 k/uL (0-1.0); Monocytes % (A) 8 %; Neutrophils # (A) 2.8 k/uL (1.3-7.7); Neutrophils % (A) 62 %; RBC 3.55 m/uL (4.30-5.90); RDW 16.6 % (11.5-15.5); WBC 4.6 k/uL (3.8-10.6)
[2019-04-20 06:10] LABS: Platelet Count 76 k/uL (150-450)
[2019-04-20] MEDS: ACYCLOVIR 200 MG CAP PO SCH ×2 (08:09→20:38)
[2019-04-20] MEDS: ASPIRIN 81 MG PO SCH (08:09)
[2019-04-20] MEDS: FORMOTEROL FUMARATE 20 MCG/2 ML NEBU INHALATION SCH ×2 (08:23→19:19)
[2019-04-20] MEDS: IPRATROPIUM-ALBUTEROL 3 ML NEB INHALATION SCH ×4 (08:23→19:21)
[2019-04-20] MEDS: BUDESONIDE 1 MG/2 ML NEBU INHALATION SCH ×2 (08:24→19:19)
--- NOTE | 2019-04-20 10:42 | PN ---
PROGRESS NOTE This is a 63-year-old gentleman who was admitted to hospital with syncope. So far the workup has been negative. His predominant problem at the moment is that he is short of breath with activity and somewhat unstable on his feet. On exam, comfortable at rest. Vital signs are stable. Chest exam reveals good air entry bilaterally. Heart exam reveals first and second heart sounds. No gallop. Exam of extremities did not reveal any edema. He is on aspirin, Lipitor. Lopressor that he was on at home had been discontinued. He was on Zestril but his blood pressures have been low on this admission. ASSESSMENT: Syncope. So far the workup has been negative. It could be vasovagal. He has normal LV systolic function. Myocardial infarction has been ruled out and he does not have pulmonary embolism. We will consider an outpatient stress test on him after discharge. FELIPA / JUANN: [id number] /
--- NOTE | 2019-04-20 13:04 | P.CNPUL ---
History of Present Illness Consult date: 04/20/19 Reason for consult: dyspnea, COPD History of present illness: This is a 63-year-old male patient with known history of severe COPD with an FEV1 of 45% of predicted, history of prostate cancer post-prostatectomy, hypertension and hyperlipidemia and recent diagnosis of multiple myeloma under the care of Dr. Chavarria. The patient presented to the hospital after he had a bout of loss of consciousness/presyncope. The patient apparently was sitting down and he tried to get up and he felt weak and then he passed out. EMS was called to the scene. The patient was initially admitted to observation. And later on he was found to have bradycardia with a 3 second cardiac cause with a heart rate in the low 20s. He was on beta blockers that were discontinued. He was seen by cardiology. He is doing better for now. CT angiogram that was done at time of admission showed no evidence of any pulmonary embolism. This was done on 04/18/2019. He was evidence of severe emphysematous changes bilaterally along with some by basilar scarring and focal calcification the right-sided hemidiaphragm. The patient also had a high resolution computed tomography scan of the chest that showed advanced emphysema mainly involving the upper lobes and mild to moderate lower lobe linear fibrotic changes. Echocardiogram showed a preserved ejection fraction of 60-65% and moderate degree of concentric left hypertrophy. No evidence of any pericardial effusion. No valvular heart disease. His EKG from yesterday was showing sinus bradycardia with a heart rate in the 51 beats per minute. Current heart rate is up to 76 beats per minute. He is on oxygen or now and his pulse ox is in order of 97% on 2 L. He has been on Bactrim 3 times a week and acyclovir 400 mg by mouth twice a day and the Revlimid on outpatient basis. He is also taking 20 mg of Decadron every Sunday. Note that the patient was diagnosed having multiple myeloma and is currently being treated with this combination 2 weeks on 1 week off. He has undergone a repair of a incisional hernia post- surgery of the prostate. Review of Systems Constitutional: Reports lethargy, Reports weakness Eyes: denies as per HPI, denies blurred vision, denies bulging eye, denies decreased vision, denies diplopia, denies discharge, denies dry eye, denies irritation, denies itching, denies pain, denies photophobia, denies loss of peripheral vision, denies loss of vision, denies tunnel vision/blind spots Ears: deny: decreased hearing, ear discharge, earache, tinnitus Ears, nose, mouth and throat: Reports as per HPI Breasts: absent: as per HPI, gynecomastia Cardiovascular: Reports decreased exercise tolerance, Reports dyspnea on ex ertion Respiratory: Reports cough, Reports dyspnea Gastrointestinal: Reports as per HPI Genitourinary: Reports as per HPI, Reports incontinence Musculoskeletal: Denies myalgias Musculoskeletal: absent: ankle pain, ankle stiffness, ankle swelling Integumentary: Reports wounds (The patient has a periorbital bruise on the left.), Denies as per HPI, Denies pruritus, Denies rash Neurological: Reports syncope Psychiatric: Reports as per HPI Endocrine: Reports as per HPI Hematologic/Lymphatic: Reports as per HPI Allergic/Immunologic: Reports as per HPI Past Medical History Past Medical History: Cancer, COPD, Hyperlipidemia, Hypertension Additional Past Medical History / Comment(s): Prostate cancer, multiple myeloma, COPD changes with upper lobe predominance History of Any Multi-Drug Resistant Organisms: None Reported Past Surgical History: Hernia Repair, Tonsillectomy Additional Past Surgical History / Comment(s): Lung biopsy/removal (bilateral) Past Anesthesia/Blood Transfusion Reactions: No Reported Reaction Past Psychological History: No Psychological Hx Reported Smoking Status: Former smoker Past Alcohol Use History: None Reported Past Drug Use History: None Reported Medications and Allergies Home Medications Medication Instructions Recorded Confirmed Type Acetaminophen [Tylenol] 650 mg PO Q6H PRN 04/17/19 04/17/19 History Acyclovir [Zovirax] 400 mg PO BID 04/17/19 04/17/19 History Aspirin 81 mg PO DAILY 04/17/19 04/17/19 History Dexamethasone 20 mg PO MO 04/17/19 04/17/19 History Ibuprofen [Motrin] 600 mg PO Q8H PRN 04/17/19 04/17/19 History Lenalidomide [Revlimid] 25 mg PO DIRECTED 04/17/19 04/17/19 History Lisinopril [Zestril] 20 mg PO DAILY 04/17/19 04/17/19 History Metoprolol Tartrate [Lopressor] 50 mg PO BID 04/17/19 04/17/19 History Prochlorperazine [Compazine] 10 mg PO Q6H PRN 04/17/19 04/17/19 History Simvastatin [Zocor] 40 mg PO HS 04/17/19 04/17/19 History Sulfamethox-Tmp 800-160Mg [Bactrim 1 tab PO MOWEFR 04/17/19 04/17/19 History DS 800-160 mg] Allergies Allergy/AdvReac Type Severity Reaction Status Date / Time amoxicillin [From Amoxil] Allergy Rash/Hives Verified 04/17/19 19:55 codeine Allergy Unknown Verified 04/17/19 19:55 kacey Allergy Swelling Verified 04/17/19 19:55 monosodium glutamate [MSG] Allergy Swelling Verified 04/17/19 19:55 Physical Exam Vitals: Vital Signs Temp Pulse Pulse Pulse Pulse Resp BP 04/20/19 12:09 76 04/20/19 11:58 76 04/20/19 08:44 78 04/20/19 08:34 76 04/20/19 08:33 76 04/20/19 08:30 98.2 F 87 17 146/76 04/20/19 08:24 76 04/20/19 03:15 98.6 F 79 18 04/19/19 23:30 98.4 F 92 18 04/19/19 20:45 75 04/19/19 20:32 75 04/19/19 20:21 74 04/19/19 19:40 97.9 F 85 18 115/69 04/19/19 19:25 18 04/19/19 16:13 74 04/19/19 16:00 72 79 18 169/75 BP Pulse Ox 04/20/19 12:09 04/20/19 11:58 04/20/19 08:44 04/20/19 08:34 04/20/19 08:33 04/20/19 08:30 93 L 04/20/19 08:24 04/20/19 03:15 93/54 93 L 04/19/19 23:30 101/54 94 L 04/19/19 20:45 04/19/19 20:32 04/19/19 20:21 04/19/19 19:40 96 04/19/19 19:25 04/19/19 16:13 04/19/19 16:00 94 L Intake and Output 04/19/19 04/20/19 04/20/19 22:59 06:59 14:59 Intake Total 360 Balance 360 Intake: Oral 360 Other: Voiding Method Urinal Urinal # Voids 1 Weight 98.3 kg Gen. appearance, comfortable likely distress Patient is pre-orbital ecchymosis with traumatic injury, Head exam was generally normal. There was no scleral icterus or corneal arcus. Mucous membranes were moist. Neck was supple and without jugular venous distension, thyromegaly, or carotid bruits. Carotids were easily palpable bilaterally. There was no adenopathy. Lungs sounds are markedly diminished specially in the upper lobes bilaterally. Few scattered expiratory wheezes. Breath sounds are otherwise symmetrical. Cardiac exam revealed the PMI to be normally situated and sized. The rhythm was regular and no extrasystoles were noted during several minutes of auscultation. The first and second heart sounds were normal and physiologic splitting of the second heart sound was noted. There were no murmurs, rubs, clicks, or gallops. Abdominal exam revealed normal bowel sounds. The abdomen was soft, non-tender, and without masses, organomegaly, or appreciable enlargement of the abdominal aorta. Examination of the extremities revealed easily palpable radial, femoral and pedal pulses. There was no cyanosis, clubbing or edema. Examination of the skin revealed no evidence of significant rashes, suspicious appearing nevi or other concerning lesions. Results - Laboratory Findings CBC and BMP: 04/20/19 05:42 04/17/19 14:32 ABG WBC 4.6 k/uL (3.8-10.6) 04/20/19 05:42 RBC 3.55 m/uL (4.30-5.90) L 04/20/19 05:42 Hgb 9.9 gm/dL (13.0-17.5) L 04/20/19 05:42 Hct 30.4 % (39.0-53.0) L 04/20/19 05:42 MCV 85.7 fL (80.0-100.0) 04/20/19 05:42 MCH 27.9 pg (25.0-35.0) 04/20/19 05:42 MCHC 32.6 g/dL (31.0-37.0) 04/20/19 05:42 RDW 16.6 % (11.5-15.5) H 04/20/19 05:42 Plt Count 76 k/uL (150-450) L 04/20/19 05:42 Neutrophils % 62 % 04/20/19 05:42 Lymphocytes % 14 % 04/20/19 05:42 Monocytes % 8 % 04/20/19 05:42 Eosinophils % 15 % 04/20/19 05:42 Basophils % 1 % 04/20/19 05:42 Neutrophils # 2.8 k/uL (1.3-7.7) 04/20/19 05:42 Lymphocytes # 0.6 k/uL (1.0-4.8) L 04/20/19 05:42 Monocytes # 0.4 k/uL (0-1.0) 04/20/19 05:42 Eosinophils # 0.7 k/uL (0-0.7) 04/20/19 05:42 Basophils # 0.0 k/uL (0-0.2) 04/20/19 05:42 Manual Slide Review Performed 04/19/19 06:08 Anisocytosis Slight 04/20/19 05:42 PT 10.4 sec (9.0-12.0) 04/17/19 14:32 INR 1.0 (<1.2) 04/17/19 14:32 APTT 21.0 sec (22.0-30.0) L 04/17/19 14:32 D-Dimer 6.95 mg/L FEU (<0.60) H 04/17/19 23:08 Sodium 137 mmol/L (137-145) 04/17/19 14:32 Potassium 4.3 mmol/L (3.5-5.1) 04/17/19 14:32 Chloride 106 mmol/L (98-107) 04/17/19 14:32 Carbon Dioxide 24 mmol/L (22-30) 04/17/19 14:32 Anion Gap 7 mmol/L 04/17/19 14:32 BUN 32 mg/dL (9-20) H 04/17/19 14:32 Creatinine 1.07 mg/dL (0.66-1.25) 04/17/19 14:32 Est GFR (CKD-EPI)AfAm 85 (>60 ml/min/1.73 sqM) 04/17/19 14:32 Est GFR (CKD-EPI)NonAf 74 (>60 ml/min/1.73 sqM) 04/17/19 14:32 Glucose 93 mg/dL (74-99) 04/17/19 14:32 POC Glucose (mg/dL) 119 mg/dL (75-99) H 04/19/19 20:22 POC Glu Business Development Engineer ID Nelly Nash 04/19/19 20:22 Calcium 7.6 mg/dL (8.4-10.2) L 04/17/19 14:32 Total Bilirubin 0.3 mg/dL (0.2-1.3) 04/17/19 14:32 AST 30 U/L (17-59) 04/17/19 14:32 ALT 62 U/L (21-72) 04/17/19 14:32 Alkaline Phosphatase 261 U/L (38-126) H 04/17/19 14:32 Troponin I <0.012 ng/mL (0.000-0.034) 04/17/19 16:57 Total Protein 6.0 g/dL (6.3-8.2) L 04/17/19 14:32 Albumin 3.0 g/dL (3.5-5.0) L 04/17/19 14:32 Urine Color Yellow 04/17/19 14:32 Urine Appearance Clear (Clear) 04/17/19 14:32 Urine pH 5.0 (5.0-8.0) 04/17/19 14:32 Ur Specific Anton 1.009 (1.001-1.035) 04/17/19 14:32 Urine Protein Negative (Negative) 04/17/19 14:32 Urine Glucose (UA) Negative (Negative) 04/17/19 14:32 Urine Ketones Negative (Negative) 04/17/19 14:32 Urine Blood Negative (Negative) 04/17/19 14:32 Urine Nitrite Negative (Negative) 04/17/19 14:32 Urine Bilirubin Negative (Negative) 04/17/19 14:32 Urine Urobilinogen <2.0 mg/dL (<2.0) 04/17/19 14:32 Ur Leukocyte Esterase Negative (Negative) 04/17/19 14:32 PT/INR, D-dimer PT 10.4 sec (9.0-12.0) 04/17/19 14:32 INR 1.0 (<1.2) 04/17/19 14:32 D-Dimer 6.95 mg/L FEU (<0.60) H 04/17/19 23:08 Abnormal lab findings: Abnormal Labs 04/17/19 04/17/19 04/17/19 14:32 14:32 14:32 RBC Hgb 12.6 L Hct 38.4 L RDW 16.1 H Plt Count 104 L Lymphocytes # Eosinophils # 1.4 H APTT 21.0 L D-Dimer BUN 32 H POC Glucose (mg/dL) Calcium 7.6 L Alkaline Phosphatase 261 H Total Protein 6.0 L Albumin 3.0 L 04/17/19 04/19/19 04/19/19 23:08 06:08 12:01 RBC 3.74 L Hgb 10.4 L Hct 31.8 L RDW 16.0 H Plt Count 89 L Lymphocytes # 0.7 L Eosinophils # 0.9 H APTT D-Dimer 6.95 H BUN POC Glucose (mg/dL) 121 H Calcium Alkaline Phosphatase Total Protein Albumin 04/19/19 04/19/19 04/20/19 16:48 20:22 05:42 RBC 3.55 L Hgb 9.9 L Hct 30.4 L RDW 16.6 H Plt Count 76 L Lymphocytes # 0.6 L Eosinophils # APTT D-Dimer BUN POC Glucose (mg/dL) 121 H 119 H Calcium Alkaline Phosphatase Total Protein Albumin - Diagnostic Findings Chest x-ray: image reviewed CT scan - chest: image reviewed Assessment and Plan Plan: 1 severe emphysema with upper lobe predominance. The patient has bullous changes in the upper lobes bilaterally, and this is probably related to smoking and previous occupational exposures. The patient has severe COPD and his previous FEV1 was in order of 45% of predicted and this was measured back in 2016 in our office. Currently is not utilizing any form of maintenance respiratory medications. His pulse ox on room air is above 90% and his pulse ox upon exertion will be checked just prior to his discharge. He has chronic exertional dyspnea and he will benefit from maintenance respiratory medications. 2 multiple myeloma currently on a combination of Revlimid and Decadron 3 history of prostate cancer 4 hypertension 5 hyperlipidemia 6 sinus bradycardia with syncope. The patient had a traumatic bruise to his left orbit and currently is off the beta blockers Plan In terms of his emphysema, I would recommend the patient be evaluated for home O2 at a time of discharge and he qualifies, should be taken home and oxygen concentrator attending to be used on outpatient basis. A pulse oximetry is also recommended for him to check his pulse ox on a regular basis. As far as maintenance inhalers, I would recommend the addition of Anoro 80 bases one inhalation a day and albuterol nebulized treatments on a when necessary basis. He can follow-up with us in the office at later stage. He is an ideal candidate for lung volume reduction surgery none that his emphysema much in the upper lobes and he would benefit from undergoing lung volume reduction. Treatment of multiple myeloma per oncology. Possible discharge in a.m. We'll continue to follow.
--- NOTE | 2019-04-20 19:24 | P.PN ---
Progress Note - Text Progress Note Date: 04/20/19 Chief Complaint: Past out History of presenting complaint: This is a pleasant [address] Perez. Most of the history is obtained with the patient and the at the bedside. Chronic stable medical conditions include hypertension, hyperlipidemia, prostate cancer. Patient had prostate surgery in the past and subsequently had radiation treatment. Patient now been getting some chemotherapy. Patient had family, we history for Thanksgiving. Patient was sitting down and when he tried to get up and go he felt probably week and then patient passed out. EMS was called patient was brought into the hospital. Admitted to the observation unit. Patient sitting down when he again passed out. Bumped his head against the wall had a slight laceration of the hematoma. He was noted on the telemetry at that time around" yesterday evening the patient had a 3 second pause and heart rate was down to the 20s. Patient had been on Lopressor. That has been discontinued. Patient also states that overall. Of more than a year patient has been progressively becoming more and more short of breath. This probably happened with exertion patient is short winded. Over time this is becoming more progressive. Patient's daughter states that while he is talking before he starts wheezing. It may be noted that patient is an ex-smoker. There is no edema. No orthopnea. Patient normally uses 1 pillow at night. No fever no chills. Admitted with-severe bradycardia from beta blockers now discontinued. Syncope leading to periorbital hematoma secondary to fall. New diagnosis of advanced emphysema. Some basal pulmonary fibrosis. Today-breathing a bit better. No syncope. Overall feeling better. He tolerated diet. Did walk out of the hallway. Pulse ox about 91% with ambulation. Review of systems: Was done for constitutional, cardiovascular, GI, pulmonary. relevant finding as above Active Medications Acetaminophen (Tylenol Tab) 650 mg PO Q6HR PRN PRN Reason: Fever and/ or Pain Last Admin: 04/20/19 16:14 Dose: 650 mg Documented by: Acyclovir (Zovirax) 400 mg PO BID [facility] Last Admin: 04/20/19 08:09 Dose: 400 mg Documented by: Albuterol/Ipratropium (Duoneb 0.5 Mg-3 Mg/3 Ml Soln) 3 ml INHALATION RT-QID [facility] Last Admin: 04/20/19 15:23 Dose: 3 ml Documented by: Alprazolam (Xanax) 0.25 mg PO Q6HR PRN PRN Reason: Anxiety Last Admin: 04/18/19 01:56 Dose: 0.25 mg Documented by: Aspirin (Aspirin) 81 mg PO DAILY [facility] Last Admin: 04/20/19 08:09 Dose: 81 mg Documented by: Atorvastatin Calcium (Lipitor) 20 mg PO [facility] Last Admin: 04/19/19 20:35 Dose: 20 mg Documented by: Budesonide (Pulmicort) 1 mg INHALATION RT-BID [facility] Last Admin: 04/20/19 08:24 Dose: 1 mg Documented by: Formoterol Fumarate (Perforomist) 20 mcg INHALATION RT-BID [facility] Last Admin: 04/20/19 08:23 Dose: 20 mcg Documented by: Sodium Chloride (Saline 0.9%) 1,000 mls @ 75 mls/hr IV .[id number] [facility] Last Admin: 04/20/19 12:16 Dose: Not Given Documented by: Melatonin (Melatonin) 3 mg PO [facility] Last Admin: 04/19/19 20:35 Dose: 3 mg Documented by: Naloxone HCl (Narcan) 0.2 mg IV Q2M PRN PRN Reason: Opioid Reversal Trimethoprim/Sulfamethoxazole (Bactrim Ds) 1 each PO MOWEFR [facility] Last Admin: 04/18/19 12:40 Dose: 1 each Documented by: Physical examination: VITAL SIGNS: 98.2, 87, 17, 146/76, 93% on room air GENERAL: Sitting up in a chair, more comfortable EYES: Pupils equal. Conjunctiva normal. HEENT: Hematoma around the left eye, decreased in size NECK: JVD not raised; masses not palpable. HEART: First and second heart sounds are normal; no edema. LUNGS:[ Respiratory rate increased, diminished breath sounds. ABDOMEN: Soft, nontender, liver spleen not palpable, no masses palpable. PSYCH: Alert and oriented x3; mood and affect normal. INVESTIGATIONS, reviewed in the clinical context: White count 4.6 hemoglobin 9.9 platelets 76 Previous testing White count 9.9 hemoglobin 12.6 platelets 104 progression 4.3 bun 32 crit 1.07 Troponin I [address] chest-negative for PE. Severe emphysematous changes. Basilar parenchymal scarring. Computed tomography scan brain-negative EKG tracing personally reviewed by me-normal sinus rhythm. Telemetry strip from yesterday evening showed 3 second pause heart rate down to the 20s Chest x-ray film personally reviewed by me-shows prominent interstitial High resolution CT chest-some lower lungs scarring Assessment: -Severe symptomatic bradycardia and 3 second pause from beta jovani.-Causing syncope. Now discontinued. -Advanced emphysema , with upper lobe bullous emphysema and an ex-smoke -Bibasilar pulmonary fibrosis. -Obesity BMI 32.3 -Left periorbital hematoma with a small laceration secondary to fall, improving -Hyperlipidemia -Essential hypertension -Prostate cancer status post surgery, radiation treatment and chemotherapy. -Bicytopenia secondary to chemotherapy -Multiple myeloma Plan: We'll watch for another 24 hours. Care was discussed with the patient and the and Dr. Bo. We'll check a 6 minute walk in the morning to check for home requirement for oxygen. Other question were also.
[2019-04-20] MEDS: MELATONIN 3 MG TABLET PO SCH (20:37)
[2019-04-20] MEDS: ATORVASTATIN 20 MG TAB PO SCH (20:39)
[2019-04-21 00:52] VITALS: RESP 18
[2019-04-21] MEDS: SODIUM CHLORIDE 0.9% 1,000 ML IV SCH (04:00)
[2019-04-21 06:15] LABS: Anisocytosis Slight; Basophils % (A) 0 %; Eosinophils % (A) 21 %; HCT 30.2 % (39.0-53.0); Lymphocytes # (A) 0.6 k/uL (1.0-4.8); Lymphocytes % (A) 12 %; MCH 28.3 pg (25.0-35.0); MCHC 33.3 g/dL (31.0-37.0); MCV 85.1 fL (80.0-100.0); Mean Platelet Volume 6.2; Monocytes # (A) 0.4 k/uL (0-1.0); Monocytes % (A) 8 %; Neutrophils # (A) 2.8 k/uL (1.3-7.7); Neutrophils % (A) 56 %; RBC 3.55 m/uL (4.30-5.90); RDW 16.6 % (11.5-15.5)
[2019-04-21 06:16] LABS: Platelet Count 125 k/uL (150-450)
[2019-04-21] MEDS: FORMOTEROL FUMARATE 20 MCG/2 ML NEBU INHALATION SCH (07:12)
[2019-04-21] MEDS: BUDESONIDE 1 MG/2 ML NEBU INHALATION SCH (07:12)
[2019-04-21] MEDS: IPRATROPIUM-ALBUTEROL 3 ML NEB INHALATION SCH ×2 (07:13→11:20)
[2019-04-21] MEDS: ACYCLOVIR 200 MG CAP PO SCH (08:29)
[2019-04-21] MEDS: ASPIRIN 81 MG PO SCH (08:29)
[2019-04-21] MEDS: ACETAMINOPHEN TAB 325 MG TAB PO PRN (09:18)
[2019-04-21 10:41] VITALS: TEMP 97.4
--- NOTE | 2019-04-21 10:58 | PN ---
PROGRESS NOTE Mr. Mendenhall is a 63-year-old male with recently diagnosed multiple myeloma, history of hypertension who presented with a syncopal episode at home and had another one while in the emergency room on the commode. He is doing well this morning. He has been ambulating. He is denying any dyspnea. He has chest discomfort related to the rib injury. He denies any palpitation. On the monitor, he is in sinus mechanism and hemodynamically stable. He has been taking off his antihypertensive regimen. He continues to be at this time on aspirin 81 mg daily, Zovirax, Lipitor 20 mg daily, . PHYSICAL EXAMINATION: Blood pressure 130/60 with a heart rate in the 80s. Eye with ecchymosis below the left eye. LUNGS: Clear to auscultation. HEART: Regular rate and rhythm, S1, S2. No S3. No rub. ABDOMEN: Soft, nontender. EXTREMITIES: No edema. LAB DATA: Revealed a hemoglobin of 10, platelet count of 125,000. IMPRESSION: 1. Syncopal episode, probably related to a vasovagal reaction. 2. History of multiple myeloma. 3. History of prostate cancer. 4. History of hypertension, stable at this time. 5. History of chronic obstructive lung disease. RECOMMENDATION: From the cardiac standpoint, I will stay off the antihypertensive regimen. I have asked him to follow his blood pressure at home and monitor. He should be able to be discharged home from the cardiac standpoint and follow up as an outpatient with Dr. Mendez and depending on the trend of his blood pressure, further adjustment will be made. MMODL / IJN: [id number] /
--- NOTE | 2019-04-21 11:24 | US ---
EXAMINATION TYPE: US venous doppler duplex LE DATE OF EXAM: 04/21/2019 10:55 AM COMPARISON: NONE CLINICAL HISTORY: swelling. SIDE PERFORMED: Bilateral TECHNIQUE: The lower extremity deep venous system is examined utilizing real time linear array sonog britney with graded compression, doppler sonography and color-flow sonography. VESSELS IMAGED: External Iliac Vein (EIV) Common Femoral Vein Deep Femoral Vein Greater Saphenous Vein * Femoral Vein Popliteal Vein Small Saphenous Vein * Proximal Calf Veins (* superficial vessels) Right Leg: Negative for DVT Left Leg: Negative for DVT Grayscale, color doppler, spectral doppler imaging performed of the deep veins of the bilateral lower extremities. There is normal flow, compressibility, vascular waveforms. IMPRESSION: No ultrasound evidence for acute DVT in either lower extremity.
[2019-04-21 11:31] VITALS: PULSE 80
[2019-04-21] MEDS: SULFAMETHOX-TMP 800-160MG 1 EACH TAB PO SCH (12:39)
--- NOTE | 2019-04-21 13:19 | P.PN ---
Subjective Progress Note Date: 04/21/19 Principal diagnosis: Dyspnea, COPD This is a 63-year-old male patient with known history of severe COPD with an FEV1 of 45% of predicted, history of prostate cancer post-prostatectomy, hypertension and hyperlipidemia and recent diagnosis of multiple myeloma under the care of Dr. Chavarria. The patient presented to the hospital after he had a bout of loss of consciousness/presyncope. The patient apparently was sitting down and he tried to get up and he felt weak and then he passed out. EMS was called to the scene. The patient was initially admitted to observation. And later on he was found to have bradycardia with a 3 second cardiac cause with a heart rate in the low 20s. He was on beta blockers that were discontinued. He was seen by cardiology. He is doing better for now. CT angiogram that was done at time of admission showed no evidence of any pulmonary embolism. This was done on 04/18/2019. He was evidence of severe emphysematous changes bilaterally along with some by basilar scarring and focal calcification the right-sided hemidiaphragm. The patient also had a high resolution computed tomography scan of the chest that showed advanced emphysema mainly involving the upper lobes and mild to moderate lower lobe linear fibrotic changes. Echocardiogram showed a preserved ejection fraction of 60-65% and moderate degree of concentric left hypertrophy. No evidence of any pericardial effusion. No valvular heart disease. His EKG from yesterday was showing sinus bradycardia with a heart rate in the 51 beats per minute. Current heart rate is up to 76 beats per minute. He is on oxygen or now and his pulse ox is in order of 97% on 2 L. He has been on Bactrim 3 times a week and acyclovir 400 mg by mouth twice a day and the Revlimid on outpatient basis. He is also taking 20 mg of Decadron every Sunday. Note that the patient was diagnosed having multiple myeloma and is currently being treated with this combination 2 weeks on 1 week off. He has undergone a repair of a incisional hernia post- surgery of the prostate. On 04/21/2019 patient is seen in follow-up on selective care unit, is awake and alert, he sitting up in the recliner, no recurrent syncopal episodes, no complaints of chest pain, no shortness of breath, no cough or congestion, no lightheadedness or dizziness, his beta blockers remain on hold. Cardiology is following. Denied any palpitations, he has been ambulating without any difficulty. He is in sinus mechanism and he has been hemodynamically stable. Cardiology cleared him for discharge home today, from pulmonary perspective he is stable, and he can follow up with Dr. Bo on outpatient basis Objective - Vital Signs Vital signs: Vital Signs Temp 97.4 F L 04/21/19 08:00 Pulse 80 04/21/19 11:30 Resp 18 04/21/19 04:00 BP 135/84 04/21/19 08:00 Pulse Ox 93 L 04/21/19 10:42 Intake & Output 04/20/19 04/21/19 04/21/19 18:59 06:59 18:59 Intake Total 582 140 Output Total 700 Balance 582 -700 140 Intake: Oral 582 140 Output: Urine 700 Other: Voiding Method Urinal # Voids 1 2 - Exam GENERAL EXAM: Alert, pleasant, 63-year-old white male, on room air, sitting up in the recliner, comfortable in no apparent distress. HEAD: Normocephalic/atraumatic. EYES: Normal reaction of pupils, equal size. Conjunctiva pink, sclera white. Recent has left periorbital bruising from the recent fall NOSE: Clear with pink turbinates. THROAT: No erythema or exudates. NECK: No masses, no JVD, no thyroid enlargement, no adenopathy. CHEST: No chest wall deformity. Symmetrical expansion. LUNGS: Equal air entry with no crackles, wheeze, rhonchi or dullness. CVS: Regular rate and rhythm, normal S1 and S2, no gallops, no murmurs, no rubs ABDOMEN: Soft, nontender. No hepatosplenomegaly, normal bowel sounds, no guarding or rigidity. EXTREMITIES: No clubbing, no edema, no cyanosis, 2+ pulses and upper and lower extremities. MUSCULOSKELETAL: Muscle strength and tone normal. SPINE: No scoliosis or deformity SKIN: No rashes CENTRAL NERVOUS SYSTEM: Alert and oriented -3. No focal deficits, tone is normal in all 4 extremities. PSYCHIATRIC: Alert and oriented -3. Appropriate affect. Intact judgment and insight. - Labs CBC & Chem 7: 04/21/19 05:44 04/17/19 14:32 Labs: Abnormal Lab Results - Last 24 Hours (Table) 04/21/19 Range/Units 05:44 RBC 3.55 L (4.30-5.90) m/uL Hgb 10.0 L (13.0-17.5) gm/dL Hct 30.2 L (39.0-53.0) % RDW 16.6 H (11.5-15.5) % Plt Count 125 L D (150-450) k/uL Lymphocytes # 0.6 L (1.0-4.8) k/uL Eosinophils # 1.0 H (0-0.7) k/uL Assessment and Plan Plan: Assessment: 1 severe emphysema with upper lobe predominance. The patient has bullous changes in the upper lobes bilaterally, and this is probably related to smoking and previous occupational exposures. The patient has severe COPD and his previous FEV1 was in order of 45% of predicted and this was measured back in 2016 in our office. Currently is not utilizing any form of maintenance respiratory medications. His pulse ox on room air is above 90% and his pulse ox upon exertion will be checked just prior to his discharge. He has chronic exertional dyspnea and he will benefit from maintenance respiratory medications. 2 multiple myeloma currently on a combination of Revlimid and Decadron 3 history of prostate cancer 4 hypertension 5 hyperlipidemia 6 sinus bradycardia with syncope. The patient had a traumatic bruise to his left orbit and currently is off the beta blockers Plan: No recurrent syncopal episodes, no falls, patient is tolerating ambulation, hemodynamically stable, he is in sinus mechanism, no episodes of bradycardia, beta blockers remain on hold. No difficulty breathing, no complaints of chest pain or palpitations, let us signs have been stable, he is been cleared by ca rdiology for discharge, from pulmonary perspective patient is clear for discharge as well, we will see him on an outpatient basis he can follow up with Dr. Bo, and one or 2 weeks. He is going home on Anoro Ellipta and Ventolin rescue inhaler I performed a history & physical examination of the patient and discussed their management with my nurse practitioner, Elina Chau. I reviewed the nurse practitioner's note and agree with the documented findings and plan of care. Lung sounds are positive for diminished breath sounds. The findings and the impression was discussed with the patient. I attest to the documentation by the nurse practitioner. Time with Patient: Less than 30
[2019-04-21 14:54] VITALS: BP 133/68
--- NOTE | 2019-04-25 16:12 | P.DS ---
Providers Date of admission: 04/19/19 14:23 Expected date of discharge: 04/21/19 Attending physician: Piotr Pelaez Consults: 04/17/19 21:15 Consult Physician Routine Consulting Provider: Agustin Root Consult Reason/Comments: bradycardia, syncope Do you want consulting provider notified?: Yes 04/17/19 23:02 Consult Physician Routine Consulting Provider: Ra Reese Consult Reason/Comments: fall with hematoma left eye Do you want consulting provider notified?: Already Contacted 04/19/19 20:58 Consult Physician Routine Consulting Provider: Srinivas Bo Consult Reason/Comments: Possible pulmonary fibrosis Do you want consulting provider notified?: Yes [facility] Course: Chief Complaint: Passed out Hospital course: This is a pleasant [address] Perez. Most of the history is obtained with the patient and the at the bedside. Chronic stable medical conditions include hypertension, hyperlipidemia, prostate cancer. Patient had prostate surgery in the past and subsequently had radiation treatment. Patient now been getting some chemotherapy. Patient had family, over for Thanksgiving. Patient was sitting down and when he tried to get up and go he felt week and then passed out. EMS was called patient was brought into the hospital. Admitted to the observation unit. Patient sitting down when he again passed out. Bumped his head against the wall had a slight laceration / hematoma, above the left eye. He was noted on the telemetry to be bradycardic. around" yesterday evening the patient had a 3 second pause and heart rate was down to the 20s. Patient had been on Lopressor. That has been discontinued. Patient also states that overall. Of more than a year patient has been progressively patient has been becoming more and more short of breath over the course of 2 years. Happens with exertion.. Over time this is becoming more progressive. Patient's daughter states that while he is talking before he starts wheezing. It may be noted that patient is an ex-smoker. There is no edema. No orthopnea. Patient normally uses 1 pillow at night. No fever no chills. Admitted with-severe bradycardia from beta blockers now discontinued. Syncope leading to periorbital hematoma secondary to fall. New diagnosis of advanced emphysema. Some basal pulmonary fibrosis-as per high resolution computed tomography scan.. Patient respiratory symptoms felt to be all from his emphysema which is out of bullous predominantly in the upper lungs. Lower lungs have some fibrosis. On the day of discharge patient able to walk and keep her pulse ox 90-91% on room air. Seen by pulmonary. Discussion and discharge planning more than 35 minutes Consultation: -Dr. Bo from pulmonary Dr. Narendra Mendez from cardiology Physical examination: VITAL SIGNS: 97.4, 89, 134/84, 93% room air GENERAL: Sitting up in a chair, more comfortable EYES: Pupils equal. Conjunctiva normal. HEENT: Hematoma around the left eye, decreased in size NECK: JVD not raised; masses not palpable. HEART: First and second heart sounds normal; no edema. LUNGS:[ Respiratory rate normal,, diminished breath sounds. ABDOMEN: Soft, nontender, liver spleen not palpable, no masses palpable. PSYCH: Alert and oriented x3; mood and affect normal. INVESTIGATIONS, reviewed in the clinical context: White count 5 hemoglobin 10 platelets 125 Previous testing White count 9.9 hemoglobin 12.6 platelets 104 progression 4.3 bun 32 crit 1.07 Troponin I [address] chest-negative for PE. Severe emphysematous changes. Basilar parenchymal scarring. Computed tomography scan brain-negative EKG tracing personally reviewed by me-normal sinus rhythm. Telemetry strip from yesterday evening showed 3 second pause heart rate down to the 20s Chest x-ray film personally reviewed by me-shows prominent interstitial High resolution CT chest-some lower lungs scarring Assessment: -Severe symptomatic bradycardia and 3 second pause from beta jovani.-Causing syncope. Now discontinued. -Advanced emphysema , with upper lobe bullous emphysema in ex-smoker -Bibasilar pulmonary fibrosis. -Obesity BMI 32.3 -Left periorbital hematoma with a small laceration secondary to fall, improving -Hyperlipidemia -Essential hypertension -Prostate cancer status post surgery, radiation treatment and chemotherapy. -Bicytopenia secondary to chemotherapy -Multiple myeloma Disposition: Home Patient Condition at Discharge: Stable Plan - Discharge Summary New Discharge Prescriptions: New Umeclidinium Brm/Vilanterol Tr [Anoro Ellipta 62.5-25 Mcg INH] 1 puff INHALATION DAILY #1 device Melatonin 3 mg PO HS tablet Albuterol Nebulized [Ventolin Nebulized] 2.5 mg INHALATION Q6H PRN #120 nebu PRN Reason: Wheezing Continue Sulfamethox-Tmp 800-160Mg [Bactrim DS 800-160 mg] 1 tab PO MOWEFR Simvastatin [Zocor] 40 mg PO HS Acyclovir [Zovirax] 400 mg PO BID Lenalidomide [Revlimid] 25 mg PO DIRECTED Dexamethasone 20 mg PO MO Aspirin 81 mg PO DAILY Acetaminophen [Tylenol] 650 mg PO Q6H PRN PRN Reason: Fever And/ Or Pain Discontinued Prochlorperazine [Compazine] 10 mg PO Q6H PRN PRN Reason: Nausea Metoprolol Tartrate [Lopressor] 50 mg PO BID Lisinopril [Zestril] 20 mg PO DAILY Ibuprofen [Motrin] 600 mg PO Q8H PRN PRN Reason: Pain Discharge Medication List Acetaminophen [Tylenol] 650 mg PO Q6H PRN 04/17/19 [History] Acyclovir [Zovirax] 400 mg PO BID 04/17/19 [History] Aspirin 81 mg PO DAILY 04/17/19 [History] Dexamethasone 20 mg PO MO 04/17/19 [History] Lenalidomide [Revlimid] 25 mg PO DIRECTED 04/17/19 [History] Simvastatin [Zocor] 40 mg PO HS 04/17/19 [History] Sulfamethox-Tmp 800-160Mg [Bactrim DS 800-160 mg] 1 tab PO MOWEFR 04/17/19 [History] Albuterol Nebulized [Ventolin Nebulized] 2.5 mg INHALATION Q6H PRN #120 nebu 04/21/19 [Rx] Melatonin 3 mg PO HS tablet 04/21/19 [Rx] Umeclidinium Brm/Vilanterol Tr [Anoro Ellipta 62.5-25 Mcg INH] 1 puff INHALATION DAILY #1 device 04/21/19 [Rx] Follow up Appointment(s)/Referral(s): Cristopher Cruz MD [STAFF PHYSICIAN] - 05/09/19 1:00 pm (Sunday) Tim Perez MD [Primary Care Provider] - 04/22/19 4:20 pm (Sunday (only appointment available. Next available is in May)) Josep Mendez MD [STAFF PHYSICIAN] - 05/01/19 3:45 pm () Patient Instructions/Handouts: Dizziness (ED) Discharge Disposition: HOME SELF-CARE
== END 2019-04-21 14:48 | disposition home or self-care (01) | DRG 309 ==
LOC: EC 13:20 → 1SOBS 18:12 → 3SCARD 22:15 → OBSVTOIN 04-19 14:23
PROVIDERS: ADMIT Hospitalist; ATTEND Hospitalist
DX: R00.1 Bradycardia, unspecified (principal); S22.32XA Fracture of one rib, left side, initial encounter for closed fracture; C90.00 Multiple myeloma not having achieved remission; J43.9 Emphysema, unspecified; I10 Essential (primary) hypertension; E78.5 Hyperlipidemia, unspecified; E66.9 Obesity, unspecified; D69.6 Thrombocytopenia, unspecified; D64.9 Anemia, unspecified; J84.10 Pulmonary fibrosis, unspecified; K43.2 Incisional hernia without obstruction or gangrene; S00.12XA Contusion of left eyelid and periocular area, initial encounter; T44.7X5A Adverse effect of beta-adrenoreceptor antagonists, initial encounter; T45.1X5A Adverse effect of antineoplastic and immunosuppressive drugs, initial encounter; W19.XXXA Unspecified fall, initial encounter; W22.01XA Walked into wall, initial encounter; Z68.32 Body mass index [BMI] 32.0-32.9, adult; Z79.82 Long term (current) use of aspirin; Z79.899 Other long term (current) drug therapy; Z85.46 Personal history of malignant neoplasm of prostate; Z87.891 Personal history of nicotine dependence; Z90.2 Acquired absence of lung [part of]
CPT/HCPCS: 36415; 70450; 71046; 71250; 71275; 80053; 81003; 84484; 85025; 85379; 85610; 85730; 93005; 93306; 93970; 94640; 94760; 99285

== ENCOUNTER 2022-01-13 21:52 | Inpatient (IN) | payer MEDICARE, BC ==
--- NOTE | 2022-01-13 22:13 | ED ---
SOB HPI - General Chief Complaint: Shortness of Breath Stated Complaint: SOB, covid+ Time Seen by Provider: 01/13/22 21:54 Source: EMS Mode of arrival: EMS Limitations: no limitations - History of Present Illness Initial Comments: This patient is a 66-year-old man who presents to evaluation for shortness of breath. Patient states that he has underlying COPD and then 10 days ago was diagnosed with coronavirus infection. He notes that his breathing has worsened over the past couple of days especially worse tonight. He does use home oxygen but was feeling dyspneic even the while using that. He denies chest pain. Denies change in urination or bowel movements. Patient has not noted increase in leg swelling. MD Complaint: shortness of breath -: days(s) Severity scale (1-10): 0 Consistency: constant Improves With: nothing Worsens With: nothing Known History Of: COPD Associated Symptoms: fever, cough - Related Data Home Oxygen Therapy: Yes Home Oxygen Amount: 2 Liters Home Medications Medication Instructions Recorded Confirmed Acetaminophen [Tylenol] 650 mg PO Q6H PRN 04/17/19 01/13/22 Albuterol Nebulized [Ventolin 2.5 mg INHALATION DIRECTED PRN 01/13/2201/13 Nebulized] Fluticasone/Umeclidin/Vilanter 1 puff INHALATION DIRECTED 01/13/22 01/13/22 [Trelegy Ellipta 200-62.5-25] Gabapentin [Neurontin] 400 mg PO BID 01/13/22 01/13/22 Metoprolol Tartrate [Lopressor] 50 mg PO DIRECTED 01/13/22 01/13/22 Multivitamins, Thera [Multivitamin 1 tab PO DAILY 01/13/22 01/13/22 (formulary)] Simvastatin (Unknown Strength) 1 dose PO HS 01/13/22 01/13/22 Temazepam [Restoril] 15 mg PO HS PRN 01/13/22 01/13/22 Unknown Cancer Medication 1 dose PO DIRECTED 01/13/22 01/13/22 Zinc 50 mg PO DAILY 01/13/22 01/13/22 lisinopriL [Zestril] 20 mg PO DIRECTED 01/13/22 01/13/22 Allergies Allergy/AdvReac Type Severity Reaction Status Date / Time amoxicillin [From Amoxil] Allergy Rash/Hives Verified 01/13/22 22:58 codeine Allergy Unknown Verified 01/13/22 22:58 kacey Allergy Swelling Verified 01/13/22 22:58 monosodium glutamate [MSG] Allergy Swelling Verified 01/13/22 22:58 Review of Systems ROS Statement: Those systems with pertinent positive or pertinent negative responses have been documented in the HPI. ROS Other: All systems not noted in ROS Statement are negative. Constitutional: Reports: fever Respiratory: Reports: cough, dyspnea. Denies: hemoptysis Cardiovascular: Reports: edema (Chronic). Denies: chest pain, palpitations, sy ncope Gastrointestinal: Denies: abdominal pain, vomiting, diarrhea, melena, hematochezia Genitourinary: Denies: dysuria, hematuria Musculoskeletal: Denies: back pain Skin: Denies: rash Neurological: Denies: headache, weakness Past Medical History Past Medical History: Cancer, COPD, Hyperlipidemia, Hypertension Additional Past Medical History / Comment(s): Prostate cancer, multiple myeloma, COPD changes with upper lobe predominance History of Any Multi-Drug Resistant Organisms: None Reported Past Surgical History: Hernia Repair, Tonsillectomy Additional Past Surgical History / Comment(s): Lung biopsy/removal (bilateral) Past Anesthesia/Blood Transfusion Reactions: No Reported Reaction Past Psychological History: No Psychological Hx Reported Smoking Status: Former smoker Past Alcohol Use History: None Reported Past Drug Use History: None Reported General Exam Limitations: no limitations General appearance: alert, in distress Head exam: Present: atraumatic, normocephalic Eye exam: Present: normal appearance. Absent: scleral icterus, conjunctival injection Neck exam: Present: normal inspection Respiratory exam: Present: respiratory distress, wheezes, rales, rhonchi, accessory muscle use. Absent: stridor, chest wall tenderness Cardiovascular Exam: Present: regular rate, normal rhythm, normal heart sounds. Absent: systolic murmur, diastolic murmur, rubs, gallop GI/Abdominal exam: Present: soft. Absent: distended, tenderness, guarding, rebound, rigid, mass Extremities exam: Present: normal inspection, normal capillary refill, pedal edema. Absent: calf tenderness Back exam: Present: normal inspection Neurological exam: Present: alert Skin exam: Present: warm, dry, intact, normal color. Absent: rash Course Vital Signs 01/13/22 01/13/22 01/13/22 22:01 22:07 23:26 Temperature 98.5 F Pulse Rate 69 63 Respiratory 36 H 30 H Rate Blood Pressure 129/73 105/52 O2 Sat by Pulse 94 L 99 Oximetry Fraction of 100 Inspired Oxygen (FIO2) 01/13/22 01/14/22 01/14/22 23:33 02:40 03:51 Temperature Pulse Rate 66 Respiratory 30 H Rate Blood Pressure 120/84 O2 Sat by Pulse 95 Oximetry Fraction of 75 75 Inspired Oxygen (FIO2) 01/14/22 06:03 Temperature Pulse Rate 66 Respiratory 28 H Rate Blood Pressure 127/59 O2 Sat by Pulse 98 Oximetry Fraction of Inspired Oxygen (FIO2) Medical Decision Making - Lab Data Result diagrams: 01/13/22 22:10 01/13/22 22:10 Lab Results 01/13/22 01/13/22 01/13/22 Range/Units 22:10 22:10 22:10 WBC 2.8 L (3.8-10.6) k/uL RBC 4.13 L (4.30-5.90) m/uL Hgb 11.7 L (13.0-17.5) gm/dL Hct 36.8 L (39.0-53.0) % MCV 89.2 (80.0-100.0) fL MCH 28.4 (25.0-35.0) pg MCHC 31.9 (31.0-37.0) g/dL RDW 16.9 H (11.5-15.5) % Plt Count 171 (150-450) k/uL MPV 7.8 Neutrophils % 75 % Lymphocytes % 15 % Monocytes % 7 % Eosinophils % 0 % Basophils % 1 % Neutrophils # 2.1 (1.3-7.7) k/uL Lymphocytes # 0.4 L (1.0-4.8) k/uL Monocytes # 0.2 (0-1.0) k/uL Eosinophils # 0.0 (0-0.7) k/uL Basophils # 0.0 (0-0.2) k/uL Hypochromasia Slight Poikilocytosis Slight Anisocytosis Slight PT 11.4 (9.0-12.0) sec INR 1.1 (<1.2) APTT 25.6 (22.0-30.0) sec D-Dimer 0.26 (<0.60) mg/L FEU VBG pH (7.31-7.41) VBG pCO2 (37-51) mmHg VBG HCO3 (24-28) mmol/L Sodium 135 L (137-145) mmol/L Potassium 4.3 (3.5-5.1) mmol/L Chloride 96 L (98-107) mmol/L Carbon Dioxide 27 (22-30) mmol/L Anion Gap 12 mmol/L BUN 14 (9-20) mg/dL Creatinine 0.69 (0.66-1.25) mg/dL Est GFR (CKD-EPI)AfAm >90 (>60 ml/min/1.73 sqM) Est GFR (CKD-EPI)NonAf >90 (>60 ml/min/1.73 sqM) Glucose 121 H (74-99) mg/dL Plasma Lactic Acid Ernesto (0.7-2.0) mmol/L Calcium 8.4 (8.4-10.2) mg/dL Magnesium 1.8 (1.6-2.3) mg/dL Total Bilirubin 0.7 (0.2-1.3) mg/dL AST 20 (17-59) U/L ALT 13 (4-49) U/L Alkaline Phosphatase 74 (38-126) U/L Troponin I (0.000-0.034) ng/mL NT-Pro-B Natriuret Pep pg/mL Total Protein 6.3 (6.3-8.2) g/dL Albumin 3.6 (3.5-5.0) g/dL Procalcitonin (0.02-0.09) ng/mL 01/13/22 01/13/22 01/13/22 Range/Units 22:10 22:10 22:10 WBC (3.8-10.6) k/uL RBC (4.30-5.90) m/uL Hgb (13.0-17.5) gm/dL Hct (39.0-53.0) % MCV (80.0-100.0) fL MCH (25.0-35.0) pg MCHC (31.0-37.0) g/dL RDW (11.5-15.5) % Plt Count (150-450) k/uL MPV Neutrophils % % Lymphocytes % % Monocytes % % Eosinophils % % Basophils % % Neutrophils # (1.3-7.7) k/uL Lymphocytes # (1.0-4.8) k/uL Monocytes # (0-1.0) k/uL Eosinophils # (0-0.7) k/uL Basophils # (0-0.2) k/uL Hypochromasia Poikilocytosis Anisocytosis PT (9.0-12.0) sec INR (<1.2) APTT (22.0-30.0) sec D-Dimer (<0.60) mg/L FEU VBG pH (7.31-7.41) VBG pCO2 (37-51) mmHg VBG HCO3 (24-28) mmol/L Sodium (137-145) mmol/L Potassium (3.5-5.1) mmol/L Chloride (98-107) mmol/L Carbon Dioxide (22-30) mmol/L Anion Gap mmol/L BUN (9-20) mg/dL Creatinine (0.66-1.25) mg/dL Est GFR (CKD-EPI)AfAm (>60 ml/min/1.73 sqM) Est GFR (CKD-EPI)NonAf (>60 ml/min/1.73 sqM) Glucose (74-99) mg/dL Plasma Lactic Acid Ernesto 1.6 (0.7-2.0) mmol/L Calcium (8.4-10.2) mg/dL Magnesium (1.6-2.3) mg/dL Total Bilirubin (0.2-1.3) mg/dL AST (17-59) U/L ALT (4-49) U/L Alkaline Phosphatase (38-126) U/L Troponin I <0.012 (0.000-0.034) ng/mL NT-Pro-B Natriuret Pep 378 pg/mL Total Protein (6.3-8.2) g/dL Albumin (3.5-5.0) g/dL Procalcitonin (0.02-0.09) ng/mL 01/13/22 01/13/22 Range/Units 22:11 22:35 WBC (3.8-10.6) k/uL RBC (4.30-5.90) m/uL Hgb (13.0-17.5) gm/dL Hct (39.0-53.0) % MCV (80.0-100.0) fL MCH (25.0-35.0) pg MCHC (31.0-37.0) g/dL RDW (11.5-15.5) % Plt Count (150-450) k/uL MPV Neutrophils % % Lymphocytes % % Monocytes % % Eosinophils % % Basophils % % Neutrophils # (1.3-7.7) k/uL Lymphocytes # (1.0-4.8) k/uL Monocytes # (0-1.0) k/uL Eosinophils # (0-0.7) k/uL Basophils # (0-0.2) k/uL Hypochromasia Poikilocytosis Anisocytosis PT (9.0-12.0) sec INR (<1.2) APTT (22.0-30.0) sec D-Dimer (<0.60) mg/L FEU VBG pH 7.43 H (7.31-7.41) VBG pCO2 44 (37-51) mmHg VBG HCO3 29 H (24-28) mmol/L Sodium (137-145) mmol/L Potassium (3.5-5.1) mmol/L Chloride (98-107) mmol/L Carbon Dioxide (22-30) mmol/L Anion Gap mmol/L BUN (9-20) mg/dL Creatinine (0.66-1.25) mg/dL Est GFR (CKD-EPI)AfAm (>60 ml/min/1.73 sqM) Est GFR (CKD-EPI)NonAf (>60 ml/min/1.73 sqM) Glucose (74-99) mg/dL Plasma Lactic Acid Ernesto (0.7-2.0) mmol/L Calcium (8.4-10.2) mg/dL Magnesium (1.6-2.3) mg/dL Total Bilirubin (0.2-1.3) mg/dL AST (17-59) U/L ALT (4-49) U/L Alkaline Phosphatase (38-126) U/L Troponin I (0.000-0.034) ng/mL NT-Pro-B Natriuret Pep pg/mL Total Protein (6.3-8.2) g/dL Albumin (3.5-5.0) g/dL Procalcitonin 0.08 (0.02-0.09) ng/mL - EKG Data -: EKG Interpreted by Me EKG shows normal: sinus rhythm, axis (Normal), intervals (Normal), QRS complexes (Low voltage QRS complex), ST-T waves Rate: normal (Rate 68 bpm) Disposition Clinical Impression: COPD (chronic obstructive pulmonary disease) Disposition: ADMITTED IP TO THIS HOSP Condition: Fair Is patient prescribed a controlled substance at d/c from ED?: No
[2022-01-13 22:24] LABS: Anisocytosis Slight; Basophils % (A) 1 %; Eosinophils % (A) 0 %; HCT 36.8 % (39.0-53.0); HGB 11.7 gm/dL (13.0-17.5); Hypochromasia Slight; Lymphocytes # (A) 0.4 k/uL (1.0-4.8); Lymphocytes % (A) 15 %; MCH 28.4 pg (25.0-35.0); MCHC 31.9 g/dL (31.0-37.0); MCV 89.2 fL (80.0-100.0); Mean Platelet Volume 7.8; Monocytes # (A) 0.2 k/uL (0-1.0); Monocytes % (A) 7 %; Neutrophils # (A) 2.1 k/uL (1.3-7.7); Neutrophils % (A) 75 %; Platelet Count 171 k/uL (150-450); Poikilocytosis Slight; RBC 4.13 m/uL (4.30-5.90); RDW 16.9 % (11.5-15.5); WBC 2.8 k/uL (3.8-10.6)
[2022-01-13 22:32] LABS: ALT 13 U/L (4-49); AST 20 U/L (17-59); African American GFR (CKD) >90 (>60 ml/min/1.73 sqM); Albumin 3.6 g/dL (3.5-5.0); Alkaline Phosphatase 74 U/L (38-126); Anion Gap 12 mmol/L; Blood Urea Nitrogen 14 mg/dL (9-20); Calcium 8.4 mg/dL (8.4-10.2); Carbon Dioxide 27 mmol/L (22-30); Chloride 96 mmol/L (98-107); Glucose 121 mg/dL (74-99); Magnesium 1.8 mg/dL (1.6-2.3); Non-African American GFR(CKD) >90 (>60 ml/min/1.73 sqM); Potassium 4.3 mmol/L (3.5-5.1); Sodium 135 mmol/L (137-145); Total Bilirubin 0.7 mg/dL (0.2-1.3); Total Protein 6.3 g/dL (6.3-8.2)
[2022-01-13 22:39] LABS: INR 1.1 (<1.2); Partial Thromboplastin Time 25.6 sec (22.0-30.0); Prothrombin Time 11.4 sec (9.0-12.0)
[2022-01-13 22:41] LABS: VBG PH 7.43 (7.31-7.41)
--- NOTE | 2022-01-13 22:47 | XR ---
EXAMINATION TYPE: XR chest 1V portable DATE OF EXAM: 01/13/2022 COMPARISON: 05/01/2019 HISTORY: Short of breath TECHNIQUE: 2 views FINDINGS: There is bullous pulmonary emphysema. There is crowding of the lower lobe lung markings. In terstitial infiltrates are present in both lower lobes with atelectasis. There are chest leads. Bony thorax is intact. IMPRESSION: Severe pulmonary emphysema. There is increasing interstitial infiltrates and atelectasis in the lower lung [place] compared to old exam.
[2022-01-14] MEDS ORDERED: predniSONE 20 MG TAB PO STA (01:28)
[2022-01-14] MEDS ORDERED: ALBUTEROL NEBULIZED 2.5 MG/3 ML INHALATION PRN (01:57)
[2022-01-14] MEDS ORDERED: PNEUMONIA PROTOCOL UTILIZED 1 EACH MISC PO PRN (01:57)
[2022-01-14] MEDS ORDERED: TEMAZEPAM 15 MG CAP PO PRN (02:01)
[2022-01-14] MEDS ORDERED: ALBUTEROL HFA INHALER INHALATION PRN (02:03)
[2022-01-14] MEDS: SODIUM CHLORIDE 0.9% 1,000 ML IV SCH ×2 (02:33→12:29)
[2022-01-14] MEDS ORDERED: ACETAMINOPHEN TAB 325 MG TAB PO PRN (06:14)
--- NOTE | 2022-01-14 06:14 | P.HPIM ---
History of Present Illness H&P Date: 01/14/22 Chief Complaint: Shortness of breath The patient is 66-year-old male history of chronic hypoxic risk on home oxygen. The patient also has a history of hypertension, hyperlipidemia, prostate cancer Tobacco use who states 10 days ago he was diagnosed with coronavirus. He states he is vaccinated with Moderna. The patient states his main symptom was cough he denies any fever or chills. The patient states he was feeling better then the day of admission he developed worsening shortness of breath. Reassurance short of breath he was hypoxic he was started on BiPAP in the emergency room. The patient was in respiratory distress with a respiratory rate of 36. The patient denied any lower extremity edema any fevers or chills. His chest x-ray showed bilateral infiltrates and severe emphysema. His vitals showed a temperature of 98.5, pulse 69, respiratory rate 36, blood pressure 129/74. The patient was given 60 mg of prednisone was hospitalized for further workup and management. Review of Systems Complete review of systems done negative other than stated above Past Medical History Past Medical History: Cancer, COPD, Hyperlipidemia, Hypertension Additional Past Medical History / Comment(s): Prostate cancer, multiple myeloma, COPD changes with upper lobe predominance History of Any Multi-Drug Resistant Organisms: None Reported Past Surgical History: Hernia Repair, Tonsillectomy Additional Past Surgical History / Comment(s): Lung biopsy/removal (bilateral) Past Anesthesia/Blood Transfusion Reactions: No Reported Reaction Past Psychological History: No Psychological Hx Reported Smoking Status: Former smoker Past Alcohol Use History: None Reported Past Drug Use History: None Reported Medications and Allergies Home Medications Medication Instructions Recorded Confirmed Type Acetaminophen [Tylenol] 650 mg PO Q6H PRN 04/17/19 01/13/22 History Albuterol Nebulized [Ventolin 2.5 mg INHALATION DIRECTED PRN 01/13/22 01/13/22 History Nebulized] Fluticasone/Umeclidin/Vilanter 1 puff INHALATION DIRECTED 01/13/22 01/13/22 History [Trelegy Ellipta 200-62.5-25] Gabapentin [Neurontin] 400 mg PO BID 01/13/22 01/13/22 History Metoprolol Tartrate [Lopressor] 50 mg PO DIRECTED 01/13/22 01/13/22 History Multivitamins, Thera [Multivitamin 1 tab PO DAILY 01/13/22 01/13/22 History (formulary)] Simvastatin (Unknown Strength) 1 dose PO HS 01/13/22 01/13/22 History Temazepam [Restoril] 15 mg PO HS PRN 01/13/22 01/13/22 History Unknown Cancer Medication 1 dose PO DIRECTED 01/13/22 01/13/22 History Zinc 50 mg PO DAILY 01/13/22 01/13/22 History lisinopriL [Zestril] 20 mg PO DIRECTED 01/13/22 01/13/22 History Allergies Allergy/AdvReac Type Severity Reaction Status Date / Time amoxicillin [From Amoxil] Allergy Rash/Hives Verified 01/13/22 22:58 codeine Allergy Unknown Verified 01/13/22 22:58 kacey Allergy Swelling Verified 01/13/22 22:58 monosodium glutamate [MSG] Allergy Swelling Verified 01/13/22 22:58 Physical Exam Vitals: Vital Signs Temp Pulse Resp BP Pulse Ox FiO2 01/14/22 03:51 66 20 120/84 95 01/14/22 02:40 75 01/13/22 23:33 75 01/13/22 23:26 63 30 H 105/52 99 01/13/22 22:07 100 01/13/22 22:01 98.5 F 69 36 H 129/73 94 L Intake and Output 01/13/22 01/13/22 01/14/22 14:59 22:59 06:59 Other: Weight 102.058 kg - Constitutional General appearance: mild distress - EENT BIPAP mask on - Respiratory Respiratory: bilateral: diminished, wheezing - Cardiovascular Rhythm: regular - Gastrointestinal General gastrointestinal: normal bowel sounds - Integumentary Integumentary: normal turgor - Neurologic Neurologic: CNII-XII intact - Musculoskeletal Musculoskeletal: strength equal bilaterally - Psychiatric Psychiatric: A&O x's 3, appropriate affect, intact judgment & insight Results CBC & Chem 7: 01/13/22 22:10 01/13/22 22:10 Labs: Abnormal Lab Results - Last 24 Hours (Table) 01/13/22 01/13/22 01/13/22 Range/Units 22:10 22:10 22:35 WBC 2.8 L (3.8-10.6) k/uL RBC 4.13 L (4.30-5.90) m/uL Hgb 11.7 L (13.0-17.5) gm/dL Hct 36.8 L (39.0-53.0) % RDW 16.9 H (11.5-15.5) % Lymphocytes # 0.4 L (1.0-4.8) k/uL VBG pH 7.43 H (7.31-7.41) VBG HCO3 29 H (24-28) mmol/L Sodium 135 L (137-145) mmol/L Chloride 96 L (98-107) mmol/L Glucose 121 H (74-99) mg/dL Chest x-ray: report reviewed Assessment and Plan (1) Respiratory failure with hypoxia Narrative/Plan: The patient the patient acute and chronic hypoxic respiratory presented with COPD exacerbation, pneumonia. Nevus, steroids, IV Rocephin and Zithromax, BiPAP as needed, pulmonary consult Current Visit: Yes Status: Acute Code(s): J96.91 - RESPIRATORY FAILURE, UNSPECIFIED WITH HYPOXIA SNOMED Code(s): 87008444994905670 (2) COPD with exacerbation Narrative/Plan: Patient severe COPD states he's not had a hospitalization for the last 2 years. He was recently diagnosed with coronal which precipitated this event continue nebs and steroids Current Visit: Yes Status: Acute Code(s): J44.1 - CHRONIC OBSTRUCTIVE P ULMONARY DISEASE W (ACUTE) EXACERBATION SNOMED Code(s): 745559198 (3) Pneumonia Narrative/Plan: Patient's chest x-ray showed increased interstitial infiltrates compared to previous chest x-ray. We'll treat as community-acquired with Rocephin and azithromycin. Current Visit: Yes Status: Acute Code(s): J18.9 - PNEUMONIA, UNSPECIFIED ORGANISM SNOMED Code(s): 570676908 Plan: Nebs, steroids, IV antibiotics, DVT prophylaxis with Lovenox, BiPAP as needed, supplemental oxygen
[2022-01-14] MEDS: TIOTROPIUM 2.5 MCG INHALER INHALATION SCH (07:32)
[2022-01-14] MEDS: ALBUTEROL HFA INHALER INHALATION SCH ×4 (07:33→20:55)
[2022-01-14] MEDS ORDERED: IPRATROPIUM-ALBUTEROL 3 ML NEB INHALATION SCH (08:00)
[2022-01-14] MEDS ORDERED: methylPREDNISolone SOD SUCCI 125 MG/2 ML VIAL IV SCH (08:00)
[2022-01-14] MEDS: MULTIVITAMINS, THERA 1 EACH TAB PO SCH (08:23)
[2022-01-14] MEDS: GABAPENTIN 400 MG CAP PO SCH ×2 (08:24→21:00)
[2022-01-14] MEDS: ENOXAPARIN 40 MG/0.4 ML SYRINGE SQ SCH (08:29)
[2022-01-14] MEDS ORDERED: NON FORMULARY DRUG (Fluticasone/Umeclidin/Vilanter [Trelegy Ellipta 200-62.5-25] 1 EACH Bl INHALATION SCH (09:00)
[2022-01-14] MEDS: SYMBICORT 160-4.5 MCG INHALER INHALATION SCH ×2 (09:49→20:55)
--- NOTE | 2022-01-14 11:09 | P.CNPUL ---
History of Present Illness Consult date: 01/14/22 Requesting physician: Genesis Meier Reason for consult: dyspnea, abnormal CXR/CT Chief complaint: Shortness of breath, cough, congestion History of present illness: This is a very pleasant 66-year-old male patient with a known history of hypertension, hyperlipidemia, prostate cancer, multiple myeloma and severe end- stage chronic obstructive pulmonary disease with an FEV1 value of 0.8 L, 26% of predicted and follows with Dr. Cruz in our office for the same. He is on Trilogy and albuterol. He has nebulized treatments. He has home oxygen that he wears at 4 L/m. He states he quit smoking 32 years ago. He was exposed to his that Lo and he's been sick with CoVID for approximately 10 days. He presented to the emergency room yesterday with worsening shortness of breath. Vincent pope is seen today in consultation. He is currently sitting up on a stretcher. He is on BiPAP 10/5 and 75% FiO2. Chest x-ray reveals severe pulmonary emphysema. There is increasing interstitial infiltrates bilaterally. White count 2.8. Hemoglobin 11.7. Platelets 171. Lymphocytes 0.4. D-dimer 0.26. Sodium 135. Potassium 4.3. Bicarb 27. BUN 14. Creatinine 0.69. Glucose 121. AST 20. ALT is 13. Troponin negative times one. ProBNP 378. Pro-calcitonin 0.08. Villa virus by PCR positive. He is currently on Symbicort, Spiriva, albuterol, IV Solu-Medrol, Lovenox. Review of Systems REVIEW OF SYSTEMS: CONSTITUTIONAL: Positive for generalized weakness, fatigue. Denies any recent significant weight loss or weight gain. EYES: Denies change in vision. EARS, NOSE, MOUTH, THROAT: Denies headaches, denies sore throat. CARDIOVASCULAR: Denies chest pain, palpitations or syncopal episodes. RESPIRATORY: Positive for shortness of breath, cough, congestion no hemoptysis. GASTROINTESTINAL: Denies change in appetite, denies abdominal pain GENITOURINARY: Denies hematuria, denies infections. MUSKULOSKELETAL: Denies pain, denies swelling. INTEGUMENTARY: Denies rash, denies eczema. NEUROLOGICAL: Denies recent memory loss, no recent seizure activity. PSYCHIATRIC: Denies anxiety, denies depression. HEMATOLOGIC/LYMPHATIC: Denies anemia, denies enlarged lymph nodes. Past Medical History Past Medical History: Cancer, COPD, Hyperlipidemia, Hypertension Additional Past Medical History / Comment(s): Prostate cancer, multiple myeloma, COPD changes with upper lobe predominance History of Any Multi-Drug Resistant Organisms: None Reported Past Surgical History: Hernia Repair, Tonsillectomy Additional Past Surgical History / Comment(s): Lung biopsy/removal (bilateral) Past Anesthesia/Blood Transfusion Reactions: No Reported Reaction Past Psychological History: No Psychological Hx Reported Smoking Status: Former smoker Past Alcohol Use History: None Reported Past Drug Use History: None Reported Medications and Allergies Home Medications Medication Instructions Recorded Confirmed Type Acetaminophen [Tylenol] 650 mg PO Q6H PRN 04/17/19 01/13/22 History Albuterol Nebulized [Ventolin 2.5 mg INHALATION DIRECTED PRN 01/13/22 01/13/22 History Nebulized] Fluticasone/Umeclidin/Vilanter 1 puff INHALATION DIRECTED 01/13/22 01/13/22 H istory [Trelegy Ellipta 200-62.5-25] Gabapentin [Neurontin] 400 mg PO BID 01/13/22 01/13/22 History Metoprolol Tartrate [Lopressor] 50 mg PO DIRECTED 01/13/22 01/13/22 History Multivitamins, Thera [Multivitamin 1 tab PO DAILY 01/13/22 01/13/22 History (formulary)] Simvastatin (Unknown Strength) 1 dose PO HS 01/13/22 01/13/22 History Temazepam [Restoril] 15 mg PO HS PRN 01/13/22 01/13/22 History Unknown Cancer Medication 1 dose PO DIRECTED 01/13/22 01/13/22 History Zinc 50 mg PO DAILY 01/13/22 01/13/22 History lisinopriL [Zestril] 20 mg PO DIRECTED 01/13/22 01/13/22 History Allergies Allergy/AdvReac Type Severity Reaction Status Date / Time amoxicillin [From Amoxil] Allergy Rash/Hives Verified 01/13/22 22:58 codeine Allergy Unknown Verified 01/13/22 22:58 kacey Allergy Swelling Verified 01/13/22 22:58 monosodium glutamate [MSG] Allergy Swelling Verified 01/13/22 22:58 Physical Exam Vitals: Vital Signs Temp Pulse Resp BP Pulse Ox FiO2 01/14/22 09:55 76 24 116/79 93 L 01/14/22 09:17 60 01/14/22 07:35 95 75 01/14/22 07:34 75 01/14/22 07:15 69 23 136/68 96 01/14/22 06:03 66 28 H 127/59 98 01/14/22 03:51 66 30 H 120/84 95 01/14/22 02:40 75 01/13/22 23:33 75 01/13/22 23:26 63 30 H 105/52 99 01/13/22 22:07 100 01/13/22 22:01 98.5 F 69 36 H 129/73 94 L Intake and Output 01/13/22 01/14/22 01/14/22 22:59 06:59 14:59 Other: Weight 102.058 kg GENERAL EXAM: Alert, pleasant 66-year-old male patient, on BiPAP 10/5 and 75% FiO2, fairly comfortable in no apparent distress. HEAD: Normocephalic. EYES: Normal reaction of pupils, equal size. NOSE: Clear with pink turbinates. THROAT: No erythema or exudates. NECK: No masses, no JVD. CHEST: No chest wall deformity. LUNGS: Equal air entry with crackles in the bilateral bases. CVS: S1 and S2 normal with no audible murmur, regular rhythm. ABDOMEN: No hepatosplenomegaly, normal bowel sounds, no guarding or rigidity. SPINE: No scoliosis or deformity SKIN: No rashes CENTRAL NERVOUS SYSTEM: No focal deficits, tone is normal in all 4 extremities. EXTREMITIES: There is no peripheral edema. No clubbing, no cyanosis. Peripheral pulses are intact. Results - Laboratory Findings CBC and BMP: 01/13/22 22:10 01/13/22 22:10 PT/INR, D-dimer PT 11.4 sec (9.0-12.0) 01/13/22 22:10 INR 1.1 (<1.2) 01/13/22 22:10 D-Dimer 0.26 mg/L FEU (<0.60) 01/13/22 22:10 Abnormal lab findings: Abnormal Labs 01/13/22 01/13/22 01/13/22 22:10 22:10 22:35 WBC 2.8 L RBC 4.13 L Hgb 11.7 L Hct 36.8 L RDW 16.9 H Lymphocytes # 0.4 L VBG pH 7.43 H VBG HCO3 29 H Sodium 135 L Chloride 96 L Glucose 121 H Coronavirus (PCR) 01/14/22 06:00 WBC RBC Hgb Hct RDW Lymphocytes # VBG pH VBG HCO3 Sodium Chloride Glucose Coronavirus (PCR) Detected A - Diagnostic Findings Chest x-ray: image reviewed Assessment and Plan Assessment: Acute on chronic hypoxemic respiratory failure secondary to acute COVID-19 infection. The patient is vaccinated. Not boosted. Acute exacerbation of severe oxygen dependent chronic obstructive pulmonary disease secondary to above History of previous heavy tobacco dependence however quit 32 years ago History of multiple myeloma History of prostate cancer Hyperlipidemia History of hypertension Plan: The patient was seen and evaluated Chest x-ray, labs and medications reviewed Add Symbicort, Spiriva, albuterol Add IV Solu-Medrol Discontinue azithromycin Titrate down the FiO2 as tolerated We will continue to follow and make further recommendations based on his clinical status I have personally seen and examined the patient, performed the documentation and the assessment and plan as written. Number of minutes spent on the visit: 20.
[2022-01-14] MEDS: METOPROLOL TARTRATE 50 MG TAB PO SCH ×2 (12:29→21:00)
[2022-01-14] MEDS: lisinopriL 20 MG TAB PO SCH ×2 (12:29→21:00)
--- NOTE | 2022-01-14 15:29 | P.PN ---
Progress Note - Text Progress Note Date: 01/14/22 Patient was seen and examined, he is still on BiPAP. A few moments ago he was started on BiPAP and his O2 saturations dropped down to the 80s. He was placed back on it. However he is feeling overall better. Continue to monitor.
[2022-01-14] MEDS: methylPREDNISolone SOD SUCCI 125 MG/2 ML VIAL IV SCH ×2 (16:11→21:00)
[2022-01-15] MEDS: methylPREDNISolone SOD SUCCI 125 MG/2 ML VIAL IV SCH ×4 (03:08→20:18)
[2022-01-15] MEDS: ENOXAPARIN 40 MG/0.4 ML SYRINGE SQ SCH (07:24)
[2022-01-15] MEDS: MULTIVITAMINS, THERA 1 EACH TAB PO SCH (07:25)
[2022-01-15] MEDS: GABAPENTIN 400 MG CAP PO SCH ×2 (07:25→20:12)
[2022-01-15] MEDS: lisinopriL 20 MG TAB PO SCH ×2 (07:25→20:12)
[2022-01-15] MEDS: METOPROLOL TARTRATE 50 MG TAB PO SCH ×2 (07:25→20:12)
[2022-01-15] MEDS: SODIUM CHLORIDE 0.9% 1,000 ML IV SCH ×2 (07:26→07:27)
[2022-01-15] MEDS: SYMBICORT 160-4.5 MCG INHALER INHALATION SCH ×2 (08:18→20:35)
[2022-01-15] MEDS: ALBUTEROL HFA INHALER INHALATION SCH ×4 (08:18→20:36)
[2022-01-15] MEDS: TIOTROPIUM 2.5 MCG INHALER INHALATION SCH (08:18)
[2022-01-15 08:59] LABS: Anisocytosis Slight; Basophils % (A) 0 %; Eosinophils % (A) 0 %; HCT 35.8 % (39.0-53.0); HGB 11.4 gm/dL (13.0-17.5); Hypochromasia Slight; Lymphocytes # (A) 0.1 k/uL (1.0-4.8); Lymphocytes % (A) 4 %; MCH 28.7 pg (25.0-35.0); MCHC 31.8 g/dL (31.0-37.0); MCV 90.5 fL (80.0-100.0); Mean Platelet Volume 8.1; Monocytes # (A) 0.2 k/uL (0-1.0); Monocytes % (A) 7 %; Neutrophils # (A) 2.6 k/uL (1.3-7.7); Neutrophils % (A) 88 %; Platelet Count 169 k/uL (150-450); Poikilocytosis Slight; RBC 3.95 m/uL (4.30-5.90)
[2022-01-15] MEDS ORDERED: AZITHROMYCIN 500 MG TAB PO SCH (09:00)
[2022-01-15 09:07] LABS: African American GFR (CKD) >90 (>60 ml/min/1.73 sqM); Anion Gap 11 mmol/L; Blood Urea Nitrogen 28 mg/dL (9-20); Calcium 8.1 mg/dL (8.4-10.2); Carbon Dioxide 26 mmol/L (22-30); Chloride 102 mmol/L (98-107); Glucose 146 mg/dL (74-99); Non-African American GFR(CKD) >90 (>60 ml/min/1.73 sqM); Potassium 4.5 mmol/L (3.5-5.1); Sodium 139 mmol/L (137-145)
--- NOTE | 2022-01-15 11:03 | P.PN ---
Subjective Progress Note Date: 01/15/22 Principal diagnosis: Shortness of breath. This is a very pleasant 66-year-old male patient with a known history of hypertension, hyperlipidemia, prostate cancer, multiple myeloma and severe end- stage chronic obstructive pulmonary disease with an FEV1 value of 0.8 L, 26% of predicted and follows with Dr. Cruz in our office for the same. He is on Trilogy and albuterol. He has nebulized treatments. He has home oxygen that he wears at 4 L/m. He states he quit smoking 32 years ago. He was exposed to his that Lo and he's been sick with CoVID for approximately 10 days. He presented to the emergency room yesterday with worsening shortness of breath. He is seen today in consultation. He is currently sitting up on a stretcher. He is on BiPAP 10/5 and 75% FiO2. Chest x-ray reveals severe pulmonary emphysema. There is increasing interstitial infiltrates bilaterally. White count 2.8. Hemoglobin 11.7. Platelets 171. Lymphocytes 0.4. D-dimer 0.26. Sodium 135. Potassium 4.3. Bicarb 27. BUN 14. Creatinine 0.69. Glucose 121. AST 20. ALT is 13. Troponin negative times one. ProBNP 378. Pro-calcitonin 0.08. Villa virus by PCR positive. He is currently on Symbicort, Spiriva, albuterol, IV Solu-Medrol, Lovenox. Progress note dated 01/15/2022. 66-year-old male seen in the emergency room yesterday. He has a history of hypertension, hyperlipidemia, prostate cancer, multiple myeloma, and end-stage COPD, with an FEV1 that's 0.8 L or 26% of predicted. The patient feels a bit better today. He is getting saline at 30 mL an hour. Currently on a nonrebreather mask. Over the night, the patient uses BiPAP, with settings of 10/5 and 60%. He sees my partner in the office for his COPD. White count 3, hemoglobin 11.4, hematocrit 35.8, and platelet count 269,000. Sodium 139, potassium 4.5, chlorides 102, CO2 26, anion gap 11, BUN 28, and creatinine 0.62. He did test positive for coronavirus. Objective - Vital Signs Vital signs: Vital Signs Temp 97.0 F L 01/15/22 07:40 Pulse 75 01/15/22 07:40 Resp 26 H 01/15/22 07:40 BP 168/82 01/15/22 07:40 Pulse Ox 92 L 01/15/22 08:16 FiO2 60 01/15/22 07:38 Intake & Output 01/14/22 01/15/22 01/15/22 18:59 06:59 18:59 Intake Total 5 10 5 Output Total 449 Balance 5 -439 5 Weight 102.058 kg Intake: IV 5 10 5 Invasive Line 2 5 10 5 Output: Urine 449 Other: Voiding Method Toilet Toilet Toilet Urinal Urinal Urinal # Voids 1 - Exam No acute distress, oriented 3. Mild conversational dyspnea. Nonrebreather mask in place. HEENT examination is grossly unremarkable. Neck supple. Full range of motion. No adenopathy thyromegaly or neck vein distention. Cardiovascular examination reveals regular rhythm rate. S1-S2 normal. No S3 or S4. No discernible murmur noted. Heart rate 75 bpm. Lungs reveal scattered bilateral rhonchi and expiratory wheezes. Breath sounds are equal bilaterally but diminished. No crackles. Saturations are between 91 and 93%. Abdomen soft bowel sounds are heard. No masses or tenderness. Extremities are intact. No cyanosis clubbing or edema. Skin is without rash or lesion. Neurologic examination is brief but nonfocal. - Labs CBC & Chem 7: 01/15/22 07:13 01/15/22 07:13 Labs: Abnormal Lab Results - Last 24 Hours (Table) 01/15/22 01/15/22 Range/Units 07:13 07:13 WBC 3.0 L (3.8-10.6) k/uL RBC 3.95 L (4.30-5.90) m/uL Hgb 11.4 L (13.0-17.5) gm/dL Hct 35.8 L (39.0-53.0) % RDW 17.0 H (11.5-15.5) % Lymphocytes # 0.1 L (1.0-4.8) k/uL BUN 28 H (9-20) mg/dL Creatinine 0.62 L (0.66-1.25) mg/dL Glucose 146 H (74-99) mg/dL Calcium 8.1 L (8.4-10.2) mg/dL Microbiology - Last 24 Hours (Table) 01/13/22 22:10 Blood Culture - Preliminary Blood No Growth after 24 hours Assessment and Plan Assessment: Acute on chronic hypoxemic respiratory failure secondary to acute COVID-19 infection. The patient is vaccinated. Not boosted. Acute exacerbation of severe oxygen dependent chronic obstructive pulmonary d isease (FEV1 0.8 L which is 26% of predicted). History of previous heavy tobacco dependence however quit 32 years ago. History of multiple myeloma. History of prostate cancer. Hyperlipidemia. History of hypertension. Plan: Plan dated 01/15/2022. The patient is on appropriate medications including Solu-Medrol, Symbicort, albuterol, and Spiriva. Additional recommendations and suggestions are forthcoming. We did not believe that the patient had an active infection, and therefore, does not require any antibiotics at this time. Labs, x-rays, and medications are reviewed. Prognosis is certainly guarded. We will continue to follow and make recommendations along the way. Time with Patient: Less than 30
--- NOTE | 2022-01-15 11:59 | XR ---
EXAMINATION TYPE: XR chest 1V portable DATE OF EXAM: 01/15/2022 11:54 AM COMPARISON: Chest radiographs from 01/13/2022 TECHNIQUE: XR chest 1V portable Frontal view of the chest. CLINICAL INDICATION:Male, 66 years old with history of COVID-19/ SOB; FINDINGS: Lungs/Pleura: Severe bullous emphysema changes bilaterally with atelectasis/scarring lung bases. Ther e is no evidence of pleural effusion or pneumothorax. Pulmonary vascularity: Unremarkable. Heart/mediastinum: Cardiomediastinal silhouette is unremarkable. Musculoskeletal: Degenerative changes of the shoulder joints. IMPRESSION: Bullous emphysema changes in the lung apices are similar to the inferior severity with airspace opaci ties in the lung bases which could represent superimposed infection.
--- NOTE | 2022-01-15 12:31 | P.PN ---
Subjective Progress Note Date: 01/15/22 Principal diagnosis: Shortness of breath Patient was transitioned from BiPAP to nonrebreather mask. He is currently sitting on the chair. No fevers recorded. He states that he is feeling better compared to admission.. He denied having any pain. No nausea or vomiting. Objective - Vital Signs Vital signs: Vital Signs Temp 97.0 F L 01/15/22 07:40 Pulse 75 01/15/22 07:40 Resp 26 H 01/15/22 07:40 BP 168/82 01/15/22 07:40 Pulse Ox 92 L 01/15/22 08:16 FiO2 60 01/15/22 07:38 Intake & Output 01/14/22 01/15/22 01/15/22 18:59 06:59 18:59 Intake Total 5 10 5 Output Total 449 Balance 5 -439 5 Weight 102.058 kg Intake: IV 5 10 5 Invasive Line 2 5 10 5 Output: Urine 449 Other: Voiding Method Toilet Toilet Toilet Urinal Urinal Urinal # Voids 1 - Exam Constitutional: No acute distress, conversant, pleasant Eyes:Anicteric sclerae, moist conjunctiva, no lid-lag, PERRLA, ENMT: Oropharynx clear, no erythema, exudates Neck: Supple, FROM, no masses, or JVD, No carotid bruits, No thyromegaly Lungs: Diminished breath sounds, bilateral rhonchi, Clear to percussion, Normal respiratory effort, no accessory muscle use Cardiovascular: Heart regular in rate and rhythm, No murmurs, gallops, or rubs, No peripheral edema Abdominal: Soft, Nontender, no guarding, rebound or rigidity, Normoactive bowel sounds, No hepatomegaly, No splenomegaly, No palpable mass Skin: Normal temperature, tone, texture, turgor, no induration, No subcutaneous nodules, No rash, lesions, No ulcers Extremities: No digital cyanosis, No clubbing, Pedal pulses intact and symmetrical, Radial pulses intact and symmetrical, No calf tenderness Psychiatric: Alert and oriented to person, place and time, appropriate affect, intact judgement Neuro: Muscles Strength 5/5 in all 4 extremities, Sensation to light touch gr ossly present throughout, Cranial nerves II-XII grossly intact, no focal sensory deficits - Labs CBC & Chem 7: 01/15/22 07:13 01/15/22 07:13 Labs: Abnormal Lab Results - Last 24 Hours (Table) 01/15/22 01/15/22 Range/Units 07:13 07:13 WBC 3.0 L (3.8-10.6) k/uL RBC 3.95 L (4.30-5.90) m/uL Hgb 11.4 L (13.0-17.5) gm/dL Hct 35.8 L (39.0-53.0) % RDW 17.0 H (11.5-15.5) % Lymphocytes # 0.1 L (1.0-4.8) k/uL BUN 28 H (9-20) mg/dL Creatinine 0.62 L (0.66-1.25) mg/dL Glucose 146 H (74-99) mg/dL Calcium 8.1 L (8.4-10.2) mg/dL Microbiology - Last 24 Hours (Table) 01/13/22 22:10 Blood Culture - Preliminary Blood No Growth after 24 hours Assessment and Plan Plan: Acute on chronic hypoxemic respiratory failure secondary to acute COVID-19 infection. Acute exacerbation of severe oxygen dependent chronic obstructive pulmonary disease secondary to above Bronchodilators Steroids Was given antibiotics earlier in admission, Procal negative, currently discontinued Discontinue IV fluids to keep on the dry side Pulmonary following Currently on 100% nonrebreather mask Monitor O2 saturations History of multiple myeloma History of prostate cancer Hyperlipidemia History of hypertension All stable Resume meds DVT prophylaxis Lovenox subcu Anticipated discharge: Clinical course to determine.
[2022-01-15] MEDS ORDERED: ALPRAZolam 0.5 MG TAB PO PRN (17:33)
[2022-01-15] MEDS ORDERED: FUROSEMIDE 10 MG/ML 2 ML VIAL IV ONE (18:00)
[2022-01-15] MEDS: LORazepam 2 MG/ML INJ IV PRN ×2 (18:08→21:46)
--- NOTE | 2022-01-15 23:03 | P.CONS ---
History of Present Illness - Reason for Consult Consult date: 01/15/22 Bacteremia Requesting physician: Geeta Palomares - Chief Complaint cough and shortness of breath x few days - History of Present Illness Patient is a 66-year old male with a past medical history significant for COPD hypertension hyperlipidemia prostate cancer multiple myeloma apparently tested positive on home test with COVID-19 about 10 days ago and this patient who is vaccinated with modern patient is presenting to the hospital 2 days ago for evaluation of cough that apparently has been getting worse for the last few days also complaining of increasing shortness of breath patient denies having any chest pain he did have a cough moderate intensity not bringing up any sputum the patient denies having any nausea vomiting abdominal pain denies any Choking on the food and no diarrhea patient on presentation to the hospital was afebrile and no fever have been recorded subsequently patient did have a mild leukopenia as well as lymphopenia D-dimer was normal patient did have normal kidney function liver exams are normal procalcitonin was normal CRP was mildly elevated 3.4 COVID test was positive patient did have blood cultures drawn which came back positive for gram-positive bacilli that has prompted this infectious disease consultation patient chest x-ray on admission with severe emphysema increased interstitial infiltrate and atelectasis repeat chest x-ray this morning emphysema with airspace opacity in lung bases could represent superimpos ed infection Review of Systems Positive point has been mentioned in the HPI rest of the systems are negative Past Medical History Past Medical History: Cancer, COPD, Hyperlipidemia, Hypertension Additional Past Medical History / Comment(s): Prostate cancer, multiple myeloma, COPD changes with upper lobe predominance History of Any Multi-Drug Resistant Organisms: None Reported Past Surgical History: Hernia Repair, Tonsillectomy Additional Past Surgical History / Comment(s): Lung biopsy/removal (bilateral) Past Anesthesia/Blood Transfusion Reactions: No Reported Reaction Smoking Status: Former smoker - Past Family History Mother Family Medical History: Unable to Obtain Father Family Medical History: Unable to Obtain Medications and Allergies Home Medications Medication Instructions Recorded Confirmed Type Acetaminophen [Tylenol] 650 mg PO Q6H PRN 04/17/19 01/13/22 History Albuterol Nebulized [Ventolin 2.5 mg INHALATION RT-QID PRN 01/13/22 01/14/22 History Nebulized] Fluticasone/Umeclidin/Vilanter 1 puff INHALATION RT-DAILY 01/13/22 01/14/22 History [Trelegy Ellipta 200-62.5-25] Gabapentin [Neurontin] 400 mg PO BID 01/13/22 01/13/22 History Metoprolol Tartrate [Lopressor] 50 mg PO BID 01/13/22 01/14/22 History Multivitamins, Thera [Multivitamin 1 tab PO DAILY 01/13/22 01/13/22 History (formulary)] Temazepam [Restoril] 15 mg PO HS PRN 01/13/22 01/13/22 History Zinc 50 mg PO DAILY 01/13/22 01/13/22 History lisinopriL [Zestril] 20 mg PO BID 01/13/22 01/14/22 History Acyclovir [Zovirax] 400 mg PO BID 01/14/22 01/14/22 History Pomalyst(Unknown) 1 dose PO DIRECTED 01/14/22 01/14/22 History Simvastatin [Zocor] 40 mg PO HS 01/14/22 01/14/22 History Sulfamethox-Tmp 800-160Mg [Bactrim 1 tab PO MOWEFR 01/14/22 01/14/22 History DS 800-160 mg] Allergies Allergy/AdvReac Type Severity Reaction Status Date / Time amoxicillin [From Amoxil] Allergy Rash/Hives Verified 01/13/22 22:58 codeine Allergy Unknown Verified 01/13/22 22:58 kacey Allergy Swelling Verified 01/13/22 22:58 monosodium glutamate [MSG] Allergy Swelling Verified 01/13/22 22:58 Physical Exam Vitals: Vital Signs Temp Pulse Resp BP Pulse Ox FiO2 01/15/22 13:11 73 24 01/15/22 12:40 97.4 F L 73 24 149/63 93 L 01/15/22 08:16 92 L 01/15/22 07:40 97.0 F L 75 26 H 168/82 93 L 01/15/22 07:38 91 L 60 01/15/22 04:30 60 01/15/22 04:00 98.8 F 66 28 H 151/74 92 L 01/15/22 02:00 68 32 H 01/15/22 00:10 60 01/15/22 00:00 99.0 F 68 32 H 134/92 93 L 01/14/22 20:58 60 01/14/22 20:00 98.6 F 84 30 H 161/72 94 L 60 Intake and Output 01/14/22 01/15/22 01/15/22 22:59 06:59 14:59 Intake Total 10 5 5 Output Total 225 224 450 Balance -906 -607 -147 Intake: IV 10 5 5 Invasive Line 2 10 5 5 Output: Urine 225 224 450 Other: Voiding Method Toilet Toilet Toilet Urinal Urinal Urinal # Voids 1 Weight 102.058 kg GENERAL DESCRIPTION: Elderly male lying in bed, no distress. No tachypnea or accessory muscle of respiration use. HEENT: Shows Pallor , no scleral icterus. Oral mucous membrane is dry. No pharyngeal erythema or thrush NECK: Trachea central, no thyromegaly. LUNGS: Unlabored breathing. Decreased intensity of breath sounds. No wheeze or crackle. HEART: S1, S2, regular rate and rhythm. No loud murmur ABDOMEN: Soft, no tenderness , guarding or rigidity, no organomegaly EXTREMITIES: No edema of feet. SKIN: No rash, no masses palpable. NEUROLOGICAL: The patient is awake, alert, oriented x3, mood and affect normal. Results CBC & Chem 7: 01/15/22 07:13 01/15/22 07:13 Labs: Abnormal Lab Results - Last 24 Hours (Table) 01/15/22 01/15/22 Range/Units 07:13 07:13 WBC 3.0 L (3.8-10.6) k/uL RBC 3.95 L (4.30-5.90) m/uL Hgb 11.4 L (13.0-17.5) gm/dL Hct 35.8 L (39.0-53.0) % RDW 17.0 H (11.5-15.5) % Lymphocytes # 0.1 L (1.0-4.8) k/uL BUN 28 H (9-20) mg/dL Creatinine 0.62 L (0.66-1.25) mg/dL Glucose 146 H (74-99) mg/dL Calcium 8.1 L (8.4-10.2) mg/dL Microbiology - Last 24 Hours (Table) 01/13/22 22:10 Blood Culture - Final Blood Assessment and Plan Plan: 1patient with a positive blood culture with gram-positive bacilli more likely representing possible skin contamination in this patient with no fever elevated white count patient predominantly presented with respiratory symptoms in this patient with underlying COPD and possible COPD exacerbation pneumonia less likely as the patient did have normal procalcitonin 2-blood cultures will be repeated document clearance 3-we will recheck his inflammatory markers including procalcitonin 4-we will monitor the patient closely off antibiotics at this point We will follow on clinical condition and cultures to further adjust medication if needed Thank you for this consultation will follow this patient along with you
[2022-01-16 00:02] LABS: Appearance,Urine Clear (Clear); Bilirubin,Urine Negative (Negative); Blood,Urine Negative (Negative); Color,Urine Light Yellow; Glucose,Urine (UA) Negative (Negative); Hyaline Casts,Urine 1 /lpf (0-2); Ketones,Urine Negative (Negative); Leukocyte Esterase,Urine Trace (Negative); Mucus,Urine Rare /hpf; Nitrite,Urine Negative (Negative); Protein,Urine Negative (Negative); RBC,Urine 1 /hpf (0-5); Specific Gravity,Urine 1.009 (1.001-1.035); Squamous Epithelial Cell,Urine <1 /hpf (0-4); Urobilinogen,Urine <2.0 mg/dL (<2.0); WBC,Urine <1 /hpf (0-5)
[2022-01-16] MEDS ORDERED: MORPHINE SULFATE 2 MG/ML SYRINGE IVP STA (00:08)
[2022-01-16] MEDS: methylPREDNISolone SOD SUCCI 125 MG/2 ML VIAL IV SCH (01:06)
[2022-01-16] MEDS: LORazepam 2 MG/ML INJ IV PRN (03:29)
[2022-01-16 04:57] VITALS: BP 109/58; PULSE 101; RESP 45; TEMP 100
[2022-01-16] MEDS: ALBUTEROL HFA INHALER INHALATION SCH (08:10)
[2022-01-16] MEDS: SYMBICORT 160-4.5 MCG INHALER INHALATION SCH (08:11)
[2022-01-16] MEDS: TIOTROPIUM 2.5 MCG INHALER INHALATION SCH (08:11)
--- NOTE | 2022-01-16 12:22 | P.DS ---
Providers Date of admission: 01/14/22 01:58 Expected date of discharge: 01/16/22 Attending physician: Genesis Meier MD Consults: 01/14/22 01:57 Consult Physician Routine Consulting Provider: Cristopher Cruz Consult Reason/Comments: COPD exacerbation Do you want consulting provider notified?: Yes 01/15/22 14:41 Consult Physician Routine Consulting Provider: Jim Hinds Consult Reason/Comments: COVID-19/Positive blood cultures Do you want consulting provider notified?: Yes Primary care physician: Taj [facility]onabdoul [facility] Course: THIS IS NOT A DISCHARGE SUMMARY BUT A SUMMARY OF CARE PATIENT ON 01/16/22 WITH TIME OF PRONOUNCED AT 5:59 AM Diagnosis throughout hospitalization Acute on chronic hypoxemic respiratory failure secondary to Covid 19 infection with underlying advanced COPD in a vaccinated individual Hypertension Hyperlipidemia History of multiple myeloma History of prostate cancer Hospital Course: Patient is a 66-year-old male with a past medical history of hypertension, hyperlipidemia, prostate cancer, multiple myeloma, and COPD home oxygen dependent. He presented to the hospital on 01/14/22 with a chief complaint of increased shortness of breath and was found to be in acute on chronic hypoxemic respiratory failure requiring high flow oxygen supplementation with BiPAP. Chest x-ray revealed bilateral infiltrates and severe emphysema. His Covid PCR came back positive. Patient was a DO NOT RESUSCITATE/DO NOT INTUBATE. His condition continued to worsen throughout hospitalization despite being placed on BiPAP at 100% FiO2. Patient was pronounced on 01/16/22 with time of reported at 5:59 AM. Time of pronounced on 01/16/22 at 5:59 AM Plan - Discharge Summary Discharge Rx Participant: Yes New Discharge Prescriptions: No Action Acetaminophen [Tylenol] 650 mg PO Q6H PRN PRN Reason: Fever And/ Or Pain Zinc 50 mg PO DAILY Metoprolol Tartrate [Lopressor] 50 mg PO BID Sulfamethox-Tmp 800-160Mg [Bactrim DS 800-160 mg] 1 tab PO MOWEFR Simvastatin [Zocor] 40 mg PO HS Pomalyst(Unknown) 1 dose PO DIRECTED Albuterol Nebulized [Ventolin Nebulized] 2.5 mg INHALATION RT-QID PRN PRN Reason: Shortness Of Breath Multivitamins, Thera [Multivitamin (formulary)] 1 tab PO DAILY Fluticasone/Umeclidin/Vilanter [Trelegy Ellipta 200-62.5-25] 1 puff INHALATION RT-DAILY lisinopriL [Zestril] 20 mg PO BID Temazepam [Restoril] 15 mg PO HS PRN PRN Reason: Insomnia Gabapentin [Neurontin] 400 mg PO BID Acyclovir [Zovirax] 400 mg PO BID Discharge Medication List Acetaminophen [Tylenol] 650 mg PO Q6H PRN 04/17/19 [History] Albuterol Nebulized [Ventolin Nebulized] 2.5 mg INHALATION RT-QID PRN 01/13/22 [History] Fluticasone/Umeclidin/Vilanter [Trelegy Ellipta 200-62.5-25] 1 puff INHALATION RT-DAILY 01/13/22 [History] Gabapentin [Neurontin] 400 mg PO BID 01/13/22 [History] Metoprolol Tartrate [Lopressor] 50 mg PO BID 01/13/22 [History] Multivitamins, Thera [Multivitamin (formulary)] 1 tab PO DAILY 01/13/22 [History] Temazepam [Restoril] 15 mg PO HS PRN 01/13/22 [History] Zinc 50 mg PO DAILY 01/13/22 [History] lisinopriL [Zestril] 20 mg PO BID 01/13/22 [History] Acyclovir [Zovirax] 400 mg PO BID 01/14/22 [History] Pomalyst(Unknown) 1 dose PO DIRECTED 01/14/22 [History] Simvastatin [Zocor] 40 mg PO HS 01/14/22 [History] Sulfamethox-Tmp 800-160Mg [Bactrim DS 800-160 mg] 1 tab PO MOWEFR 01/14/22 [History] Follow up Appointment(s)/Referral(s): Tim Perez MD [Primary Care Provider] - 1-2 days Discharge Disposition: - Preliminary Cause of Preliminary Cause of : acute on chronic hypoxemic respiratory failure due to COVID 19 infection
--- NOTE | 2022-01-25 10:48 | CDI ---
Documentation Clarification Form Date: 01/25/2022 10:39:15 AM From: Karen Shore RN, CCDS Email: [email or web address] Admit Date: 01/14/2022 01:58:00 AM Patient Name: Cheryl Mendenhall Visit Number: [id number] Discharge Date: 01/16/2022 08:34:00 AM ATTENTION: The Clinical Documentation Specialists (CDI) and [facility] Coding Staff appreciate your assistance in clarifying documentation. Please respond to the clarification below the line at the bottom and electronically sign. The CDI & [facility] Coding staff will review the response and follow-up if needed. Please note: Queries are made part of the Legal Health Record. If you have any questions, please contact the author of this message via ITS. Dr. Genesis Meier Your patient had Covid-19 infection and abnormal chest xray findings. Based on this information and the findings below, is there an additional diagnosis that is clinically appropriate for this patient? Patient history/risk factors: End stage COPD, home oxygen, hx of multiple myeloma, HTN, hyperlipidemia and prostate cancer. Diagnosed with Coronavirus 10 days prior. Vaccinated with Moderna and no booster. Clinical Indicators: H&P: short of breath, hypoxic, was started on BiPAP in the ED. The patient was in respiratory distress with a respiratory rate of 36. The patient denied any lower extremity edema any fevers or chills. His chest x-ray showed bilateral infiltrates and severe emphysema. His vitals showed a temperature of 98.5, pulse 69, respiratory rate 36 and blood pressure 129/74. 01/13 CXR: Severe pulmonary emphysema. There is increasing interstitial infiltrates and atelectasis in the lower lung [place] compared to old exam. 01/15 CXR: Bullous emphysema changes in the lung apices are similar to the inferior severity with airspace opacities in the lung bases which could represent superimposed infection. 01/14 Coronavirus detected Treatment: Duonebs, IV Solumedrol 60mg Q6H, Multivitamins daily, Spiriva 2 puffs daily 01/15 ID: patient with a positive blood culture with gram-positive bacilli more likely representing possible skin contamination in this patient with no fever or elevated white count. Patient predominantly presented with respiratory symptoms in this patient with underlying COPD and possible COPD exacerbation, pneumonia less likely as the patient did have normal procalcitonin. Is there an additional diagnosis that is clinically appropriate for this patient? [ ] Covid-19 Pneumonia [ ] No Covid-19 Pneumonia [ ] Other, please specify [ ] Unable to determine MTDD
== END 2022-01-16 08:34 | disposition expired | DRG 177 ==
LOC: EC 21:52 → 3SCARD 01-14 01:58
PROVIDERS: ADMIT Internal Medicine; ATTEND Internal Medicine
PROC: 5A09457 Assistance with Respiratory Ventilation, 24-96 Consecutive Hours, Continuous Positive Airway Pressure (ICD-10-PCS; principal; 2022-01-13)
DX: U07.1 COVID-19 (principal); J12.82 Pneumonia due to coronavirus disease 2019; J96.21 Acute and chronic respiratory failure with hypoxia; J98.11 Atelectasis; J43.9 Emphysema, unspecified; Z66 Do not resuscitate; E78.5 Hyperlipidemia, unspecified; I10 Essential (primary) hypertension; Z99.81 Dependence on supplemental oxygen; Z79.51 Long term (current) use of inhaled steroids; Z79.899 Other long term (current) drug therapy; Z87.891 Personal history of nicotine dependence; Z85.46 Personal history of malignant neoplasm of prostate; Z85.79 Personal history of other malignant neoplasms of lymphoid, hematopoietic and related tissues; Z91.02 Food additives allergy status; Z88.5 Allergy status to narcotic agent; Z88.0 Allergy status to penicillin; Z91.018 Allergy to other foods
CPT/HCPCS: 36415; 71045; 80048; 80053; 81001; 82803; 83605; 83735; 83880; 84145; 84484; 85025; 85379; 85610; 85730; 86140; 87040; 87635; 93005; 94640; 94660; 94760; 96372; 96374; 99285